=== PATIENT | female | born 1935 | race Caucasian/White ===

== ENCOUNTER 2018-08-14 05:32 | Inpatient (IN) ==
[2018-08-14] MEDS ORDERED: ceFAZolin 1,000 MG in SYRINGE 1 EACH IV ONE (06:00)
[2018-08-14] MEDS ORDERED: VANCOMYCIN INJ 1,000 MG in SODIUM CHLORIDE 0.9% 250 ML IV ONE (06:00)
[2018-08-14] MEDS ORDERED: BUPIVACAINE 0.5% 50 ML VIAL ONE (06:21)
[2018-08-14] MEDS ORDERED: BUPIVACAINE SPINAL 0.75% 2 ML AMP SPINAL ONE (06:21)
[2018-08-14] MEDS ORDERED: TRANEXAMIC ACID 1,000 MG/10 ML VIAL ONE (06:22)
[2018-08-14 06:36] LABS: Apearance,Urine CLEAR (Clear); Bacteria,Urine Occasional /HPF (Few); Bilirubin,Urine Negative (Negative); Blood, Urine Negative (Negative); Glucose,Urine (UA) Negative (Negative); Ketones,Urine Negative (Negative); Mucus,Urine Occasional /LPF (Occasional); Nitrite,Urine Negative (Negative); Protein,Urine Negative; RBC,Urine <1 /HPF (0-4); Squamous Epithelial Cell,Urine Occasional /HPF (0-10); Urine Color Straw (Yellow); Urine Specific Gravity 1.005 (1.001-1.035); Urine Urobilinogen < 2.0 EU/DL (0.2-1.0); WBC,Urine 1 /HPF (0-6)
[2018-08-14 06:39] LABS: INR 0.9; PT Patient Result 9.6 SECS; Partial Thromboplastin Time 26.2 SECS (0-40)
[2018-08-14] MEDS: LACTATED RINGERS 1,000 ML IV SCH ×3 (06:45→20:24)
[2018-08-14] MEDS ORDERED: VANCOMYCIN 1,000 MG VIAL ONE (06:55)
[2018-08-14] MEDS ORDERED: ceFAZolin 1,000 MG VIAL ONE (06:55)
[2018-08-14] MEDS ORDERED: BACITRACIN OINT 0.9 GM PACK TOP ONE (08:12)
[2018-08-14] MEDS ORDERED: ALBUTEROL 2.5 MG/3 ML NEB RESP TX PRN (08:52)
[2018-08-14] MEDS ORDERED: MORPHINE 4 MG/1 ML VIAL IV PRN ×2 (08:55)
[2018-08-14] MEDS ORDERED: MAGNESIUM HYDROXIDE SUSP 30 ML UDCUP PO PRN (08:55)
[2018-08-14] MEDS ORDERED: LEVOMILNACIPRAN 40 MG PO SCH (09:00)
[2018-08-14 09:28] LABS: Apearance,Urine CLEAR (Clear); Bilirubin,Urine Negative (Negative); Blood, Urine Negative (Negative); Glucose,Urine (UA) Negative (Negative); Ketones,Urine Negative (Negative); Nitrite,Urine Negative (Negative); Protein,Urine Negative; RBC,Urine <1 /HPF (0-4); Urine Color Straw (Yellow); Urine Specific Gravity 1.006 (1.001-1.035); Urine Urobilinogen < 2.0 EU/DL (0.2-1.0); WBC,Urine <1 /HPF (0-6)
[2018-08-14] MEDS ORDERED: fentaNYL 100 MCG/2 ML VIAL ONE (09:34)
[2018-08-14] MEDS ORDERED: SEVOFLURANE 1 UNIT/15 MINUTE INH ONE (09:36)
[2018-08-14] MEDS ORDERED: ePHEDrine 50 MG/ML AMP ONE (09:36)
[2018-08-14] MEDS ORDERED: PHENYLEPHRINE 10 MG/1 ML VIAL IV ONE (09:36)
[2018-08-14] MEDS ORDERED: NALOXONE 0.4 MG/ML VIAL ONE (09:36)
[2018-08-14] MEDS ORDERED: PROPOFOL 200 MG/20 ML VIAL IV ONE (09:36)
[2018-08-14] MEDS ORDERED: SODIUM CHLORIDE 0.9% 100 ML IV ONE (09:37)
[2018-08-14] MEDS ORDERED: NEOSTIGMINE 10 MG/10 ML VIAL ONE (09:37)
[2018-08-14] MEDS ORDERED: ROCURONIUM 100 MG/10 ML VIAL IV ONE (09:37)
[2018-08-14] MEDS ORDERED: GLYCOPYRROLATE 0.4 MG/2 ML VIAL ONE (09:37)
[2018-08-14] MEDS: LOSARTAN 50 MG TABLET PO SCH ×2 (11:16→20:26)
[2018-08-14] MEDS: DOCUSATE SODIUM 100 MG CAPSULE PO SCH ×2 (11:16→20:25)
[2018-08-14] MEDS: GABAPENTIN 300 MG CAPSULE PO SCH ×2 (11:16→20:26)
[2018-08-14] MEDS: FERROUS SULFATE 325 MG TABLET PO SCH ×2 (11:16→20:25)
[2018-08-14] MEDS: PANTOPRAZOLE 40 MG TABLET PO SCH (11:25)
[2018-08-14] MEDS: CALCIUM (CITRATE)/VITAMIN D 200 MG-125 UNIT TABLET PO SCH (11:25)
[2018-08-14] MEDS: MULTIVITAMIN (CENTRUM) TABLET PO SCH (11:25)
[2018-08-14] MEDS: LEVOTHYROXINE 75 MCG TABLET PO SCH (11:25)
[2018-08-14] MEDS: POTASSIUM CHLORIDE 20 MEQ TABLET PO SCH (11:25)
[2018-08-14] MEDS: MEMANTINE 10 MG TABLET PO SCH ×2 (11:26→20:26)
[2018-08-14] MEDS: KETOROLAC 15 MG/1 ML VIAL IV SCH ×3 (11:26→22:22)
[2018-08-14] MEDS: POLYETHYLENE GLYCOL POWDER 17 GM PACK PO SCH (11:26)
[2018-08-14] MEDS: MAGNESIUM CHLORIDE 64 MG TABLET PO SCH ×2 (11:29→20:25)
[2018-08-14] MEDS: ACETAMINOPHEN 500 MG TABLET PO SCH ×2 (13:16→18:39)
[2018-08-14] MEDS: ceFAZolin 1,000 MG in SYRINGE 1 EACH IV SCH (16:26)
[2018-08-14] MEDS: AMITRIPTYLINE 50 MG TABLET PO SCH (20:25)
[2018-08-14] MEDS: FONDAPARINUX 2.5 MG/0.5 ML SYRINGE SUBCUT SCH (20:27)
[2018-08-14] MEDS ORDERED: PREDNISONE 2.5 MG PO SCH (21:00)
[2018-08-15] MEDS: ACETAMINOPHEN 500 MG TABLET PO SCH ×2 (00:35→06:08)
[2018-08-15] MEDS: ceFAZolin 1,000 MG in SYRINGE 1 EACH IV SCH (00:36)
[2018-08-15] MEDS: KETOROLAC 15 MG/1 ML VIAL IV SCH (04:33)
[2018-08-15 05:24] LABS: Basophils % 0.4 % (0.0-0.8); Eosinophils # 0.3 10*3/uL (0.0-0.87); Eosinophils % 3.4 % (0.00-10.9); Hematocrit 31.3 VOL% (35.7-47.0); Hemoglobin 9.6 GM/DL (12.0-16.0); Immature Granulocytes % 0.4 %; Immature Granulocytes Absolute 0.03 #; Lymphocytes # 0.8 10*3/uL (1.4-4.0); Lymphocytes % 10.7 % (21.3-54.2); Mean Corpuscular HGB Conc 30.7 GM/DL (32-36); Mean Corpuscular Volume 94.8 FL (87-102); Mean Platelet Volume 10.1 FL (9.6-12.0); Monocytes % 6.3 % (1.7-12.7); Neutrophils % 78.8 % (38.7-73.9); Platelet Count 146 T/CUMM (130-400); Red Cell Distribution Width 14.1 % (9.3-17.3); White Blood Count 7.7 T/CUMM (4-12)
[2018-08-15 05:47] LABS: Calcium 8.6 MG/DL (8.5-10.1); Osmolality,Calculated 289.6 MOS/KG (273-304)
[2018-08-15] MEDS: LACTATED RINGERS 1,000 ML IV SCH ×2 (06:09→07:21)
[2018-08-15] MEDS: LEVOTHYROXINE 75 MCG TABLET PO SCH (07:26)
[2018-08-15] MEDS: DOCUSATE SODIUM 100 MG CAPSULE PO SCH ×2 (09:33→20:37)
[2018-08-15] MEDS: MAGNESIUM CHLORIDE 64 MG TABLET PO SCH ×2 (09:34→20:39)
[2018-08-15] MEDS: POTASSIUM CHLORIDE 20 MEQ TABLET PO SCH (09:34)
[2018-08-15] MEDS: GABAPENTIN 300 MG CAPSULE PO SCH ×3 (09:34→20:49)
[2018-08-15] MEDS: MEMANTINE 10 MG TABLET PO SCH ×2 (09:35→20:38)
[2018-08-15] MEDS: FERROUS SULFATE 325 MG TABLET PO SCH ×2 (09:35→20:38)
[2018-08-15] MEDS: PANTOPRAZOLE 40 MG TABLET PO SCH (09:35)
[2018-08-15] MEDS: CALCIUM (CITRATE)/VITAMIN D 200 MG-125 UNIT TABLET PO SCH (09:36)
[2018-08-15] MEDS: LOSARTAN 50 MG TABLET PO SCH ×2 (09:36→20:38)
[2018-08-15] MEDS: hydrALAZINE 25 MG TABLET PO SCH ×3 (09:36→20:39)
[2018-08-15] MEDS: amLODIPine 5 MG TABLET PO SCH (09:36)
[2018-08-15] MEDS: MULTIVITAMIN (CENTRUM) TABLET PO SCH (09:36)
[2018-08-15] MEDS: POLYETHYLENE GLYCOL POWDER 17 GM PACK PO SCH (09:37)
[2018-08-15] MEDS: AMITRIPTYLINE 50 MG TABLET PO SCH (20:39)
[2018-08-15] MEDS: FONDAPARINUX 2.5 MG/0.5 ML SYRINGE SUBCUT SCH (20:39)
[2018-08-16 05:05] LABS: Basophils % 0.3 % (0.0-0.8); Eosinophils # 0.5 10*3/uL (0.0-0.87); Hematocrit 31.1 VOL% (35.7-47.0); Hemoglobin 9.8 GM/DL (12.0-16.0); Immature Granulocytes % 0.5 %; Immature Granulocytes Absolute 0.06 #; Lymphocytes # 0.8 10*3/uL (1.4-4.0); Lymphocytes % 7.2 % (21.3-54.2); Mean Corpuscular HGB Conc 31.5 GM/DL (32-36); Mean Corpuscular Volume 93.4 FL (87-102); Mean Platelet Volume 10.1 FL (9.6-12.0); Monocytes % 6.6 % (1.7-12.7); Neutrophils % 81.4 % (38.7-73.9); Platelet Count 144 T/CUMM (130-400); Red Blood Count 3.33 MC/CUMM (3.8-5.5); Red Cell Distribution Width 14.1 % (9.3-17.3); White Blood Count 11.5 T/CUMM (4-12)
[2018-08-16] MEDS: LEVOTHYROXINE 75 MCG TABLET PO SCH (07:36)
[2018-08-16] MEDS: CALCIUM (CITRATE)/VITAMIN D 200 MG-125 UNIT TABLET PO SCH (10:14)
[2018-08-16] MEDS: LOSARTAN 50 MG TABLET PO SCH ×2 (10:15→20:36)
[2018-08-16] MEDS: GABAPENTIN 300 MG CAPSULE PO SCH ×3 (10:15→20:36)
[2018-08-16] MEDS: MEMANTINE 10 MG TABLET PO SCH ×2 (10:16→20:36)
[2018-08-16] MEDS: POLYETHYLENE GLYCOL POWDER 17 GM PACK PO SCH (10:17)
[2018-08-16] MEDS: amLODIPine 5 MG TABLET PO SCH (10:17)
[2018-08-16] MEDS: MAGNESIUM CHLORIDE 64 MG TABLET PO SCH ×2 (10:18→20:35)
[2018-08-16] MEDS: DOCUSATE SODIUM 100 MG CAPSULE PO SCH ×2 (10:18→20:36)
[2018-08-16] MEDS: MULTIVITAMIN (CENTRUM) TABLET PO SCH (10:19)
[2018-08-16] MEDS: FERROUS SULFATE 325 MG TABLET PO SCH ×2 (10:19→20:35)
[2018-08-16] MEDS: hydrALAZINE 25 MG TABLET PO SCH ×3 (10:20→20:35)
[2018-08-16] MEDS: PANTOPRAZOLE 40 MG TABLET PO SCH (10:20)
[2018-08-16] MEDS: POTASSIUM CHLORIDE 20 MEQ TABLET PO SCH (10:21)
[2018-08-16] MEDS: ONDANSETRON 4 MG/2 ML VIAL IV PRN ×2 (12:09→16:26)
[2018-08-16] MEDS: AMITRIPTYLINE 50 MG TABLET PO SCH (20:35)
[2018-08-16] MEDS: FONDAPARINUX 2.5 MG/0.5 ML SYRINGE SUBCUT SCH (20:36)
[2018-08-17 06:04] LABS: Basophils % 0.4 % (0.0-0.8); Eosinophils # 0.6 10*3/uL (0.0-0.87); Eosinophils % 7.5 % (0.00-10.9); Hematocrit 30.3 VOL% (35.7-47.0); Hemoglobin 9.4 GM/DL (12.0-16.0); Immature Granulocytes % 0.5 %; Immature Granulocytes Absolute 0.04 #; Lymphocytes % 12.8 % (21.3-54.2); Mean Platelet Volume 10.2 FL (9.6-12.0); Monocytes % 6.3 % (1.7-12.7); Neutrophils % 72.5 % (38.7-73.9); Platelet Count 159 T/CUMM (130-400); Red Blood Count 3.19 MC/CUMM (3.8-5.5); Red Cell Distribution Width 14.1 % (9.3-17.3); White Blood Count 7.9 T/CUMM (4-12)
[2018-08-17] MEDS: LEVOTHYROXINE 75 MCG TABLET PO SCH (07:49)
[2018-08-17] MEDS: GABAPENTIN 300 MG CAPSULE PO SCH ×2 (08:21→12:06)
[2018-08-17] MEDS: amLODIPine 5 MG TABLET PO SCH (08:22)
[2018-08-17] MEDS: hydrALAZINE 25 MG TABLET PO SCH (08:22)
[2018-08-17] MEDS: PANTOPRAZOLE 40 MG TABLET PO SCH (08:22)
[2018-08-17] MEDS: POLYETHYLENE GLYCOL POWDER 17 GM PACK PO SCH (08:22)
[2018-08-17] MEDS: MEMANTINE 10 MG TABLET PO SCH (08:22)
[2018-08-17] MEDS: LOSARTAN 50 MG TABLET PO SCH (08:22)
[2018-08-17] MEDS: POTASSIUM CHLORIDE 20 MEQ TABLET PO SCH (08:22)
[2018-08-17] MEDS: DOCUSATE SODIUM 100 MG CAPSULE PO SCH (08:22)
[2018-08-17] MEDS: MULTIVITAMIN (CENTRUM) TABLET PO SCH (08:22)
[2018-08-17] MEDS: FERROUS SULFATE 325 MG TABLET PO SCH (08:22)
[2018-08-17] MEDS: MAGNESIUM CHLORIDE 64 MG TABLET PO SCH (08:22)
[2018-08-17] MEDS: CALCIUM (CITRATE)/VITAMIN D 200 MG-125 UNIT TABLET PO SCH (08:22)
[2018-08-17] MEDS: ONDANSETRON 4 MG/2 ML VIAL IV PRN (09:23)
[2018-08-17 12:10] VITALS: BP 153/62
== END 2018-08-17 13:10 | disposition swing bed (61) | DRG 470 ==
LOC: N.SDSINP 05:32 → N.3E 10:08
PROVIDERS: ADMIT Orthopaedic Surgery; ATTEND Orthopaedic Surgery

== ENCOUNTER 2020-07-09 14:15 | Inpatient (IN) ==
[2020-07-09] MEDS ORDERED: ASPIRIN 325 MG TABLET PO STA (15:05)
[2020-07-09 16:25] LABS: Basophils % 0.4 % (0.0-0.8); Eosinophils # 0.1 10*3/uL (0.0-0.87); Eosinophils % 1.1 % (0.00-10.9); Hematocrit 35.8 VOL% (35.7-47.0); Hemoglobin 11.3 GM/DL (12.0-16.0); Immature Granulocytes % 0.9 %; Immature Granulocytes Absolute 0.04 #; Lymphocytes # 0.9 10*3/uL (1.4-4.0); Lymphocytes % 18.7 % (21.3-54.2); Mean Corpuscular HGB Conc 31.6 GM/DL (32-36); Mean Platelet Volume 9.4 FL (9.6-12.0); Monocytes % 7.4 % (1.7-12.7); Neutrophils % 71.5 % (38.7-73.9); Platelet Count 237 T/CUMM (130-400); Red Blood Count 3.81 MC/CUMM (3.8-5.5); White Blood Count 4.6 T/CUMM (4-12)
[2020-07-09 16:46] LABS: Albumin 3.1 G/DL (3.4-5.0); Bilirubin,Total 1.3 MG/DL (0.2-1.0); Calcium 9.9 MG/DL (8.5-10.1); Free T4 (Free Thyroxine) 1.27 NG/DL (0.76-1.46); Potassium 4.4 MMOL/L (3.5-5.1); Total Protein 6.4 G/DL (6.4-8.2)
[2020-07-09] MEDS ORDERED: FUROSEMIDE 20 MG/2 ML VIAL IV STA (17:49)
[2020-07-09] MEDS ORDERED: ENOXAPARIN 100 MG/ML SYRINGE SUBCUT STA (17:49)
[2020-07-09] MEDS ORDERED: NICOTINE 21 MG/24 HR PATCH TRANSDERM PRN (18:08)
[2020-07-09] MEDS ORDERED: ACETAMINOPHEN 325 MG TABLET PO PRN (18:08)
[2020-07-09] MEDS ORDERED: MORPHINE 4 MG/1 ML VIAL IV PRN (18:08)
[2020-07-09] MEDS ORDERED: GLUCAGON 1 MG VIAL IM PRN ×2 (18:08)
[2020-07-09] MEDS ORDERED: guaiFENesin/DM ER 600-30 MG TABLET PO PRN (18:08)
[2020-07-09] MEDS ORDERED: diphenhydrAMINE CAP 25 MG CAPSULE PO PRN (18:08)
[2020-07-09] MEDS ORDERED: ONDANSETRON 4 MG/2 ML VIAL IV PRN (18:08)
[2020-07-09] MEDS ORDERED: ZALEPLON 5 MG CAPSULE PO PRN (18:08)
[2020-07-09] MEDS ORDERED: DEXTROSE 50% 25 GM/50 ML VIAL IV PRN ×2 (18:08)
[2020-07-09] MEDS ORDERED: hydrALAZINE 20 MG/1 ML VIAL IV PRN (18:08)
[2020-07-09] MEDS ORDERED: FUROSEMIDE 40 MG/4 ML VIAL ONE (18:56)
[2020-07-09] MEDS: AMITRIPTYLINE 25 MG TABLET PO SCH (22:17)
[2020-07-09] MEDS: LOSARTAN 50 MG TABLET PO SCH (22:17)
[2020-07-09] MEDS: MEMANTINE 10 MG TABLET PO SCH (22:18)
[2020-07-09] MEDS: GABAPENTIN 300 MG CAPSULE PO SCH (22:18)
[2020-07-09] MEDS: ALPRAZolam 0.25 MG TABLET PO SCH (22:18)
[2020-07-09] MEDS: INSULIN REGULAR 100 UNIT/ML SUBCUT SCH (22:18)
[2020-07-10 05:24] LABS: Basophils % 0.6 % (0.0-0.8); Eosinophils # 0.2 10*3/uL (0.0-0.87); Eosinophils % 4.6 % (0.00-10.9); Hematocrit 34.5 VOL% (35.7-47.0); Hemoglobin 10.9 GM/DL (12.0-16.0); Immature Granulocytes % 0.6 %; Immature Granulocytes Absolute 0.03 #; Lymphocytes # 1.5 10*3/uL (1.4-4.0); Lymphocytes % 30.5 % (21.3-54.2); Mean Corpuscular HGB Conc 31.6 GM/DL (32-36); Mean Corpuscular Volume 92.2 FL (87-102); Monocytes % 7.4 % (1.7-12.7); Neutrophils % 56.3 % (38.7-73.9); Platelet Count 211 T/CUMM (130-400); Red Blood Count 3.74 MC/CUMM (3.8-5.5); Red Cell Distribution Width 14.2 % (9.3-17.3); White Blood Count 4.8 T/CUMM (4-12)
[2020-07-10] MEDS ORDERED: ENOXAPARIN 60 MG/0.6 ML SYRINGE SUBCUT SCH (06:00)
[2020-07-10 06:15] LABS: Calcium 9.6 MG/DL (8.5-10.1); Osmolality,Calculated 274.8 MOS/KG (273-304); Risk Ratio 2.53
[2020-07-10] MEDS: INSULIN REGULAR 100 UNIT/ML SUBCUT SCH ×4 (08:46→21:49)
[2020-07-10] MEDS: ALPRAZolam 0.25 MG TABLET PO SCH ×2 (08:52→21:47)
[2020-07-10] MEDS: amLODIPine 10 MG TABLET PO SCH (08:52)
[2020-07-10] MEDS: LOSARTAN 50 MG TABLET PO SCH ×2 (08:53→21:47)
[2020-07-10] MEDS: FERROUS SULFATE 325 MG TABLET PO SCH ×2 (08:53→16:43)
[2020-07-10] MEDS: MEMANTINE 10 MG TABLET PO SCH ×2 (08:53→21:46)
[2020-07-10] MEDS: PANTOPRAZOLE 40 MG TABLET PO SCH (08:53)
[2020-07-10] MEDS: FUROSEMIDE 40 MG/4 ML VIAL IV SCH ×2 (08:53→16:42)
[2020-07-10] MEDS ORDERED: DEXTROSE 50% 25 GM/50 ML VIAL IV PRN (14:42)
[2020-07-10] MEDS: RIVAROXABAN 15 MG TABLET PO SCH (16:43)
[2020-07-10] MEDS: GABAPENTIN 300 MG CAPSULE PO SCH (21:46)
[2020-07-10] MEDS: AMITRIPTYLINE 25 MG TABLET PO SCH (21:50)
[2020-07-11 05:25] LABS: Basophils % 0.7 % (0.0-0.8); Eosinophils # 0.2 10*3/uL (0.0-0.87); Eosinophils % 5.3 % (0.00-10.9); Hemoglobin 10.9 GM/DL (12.0-16.0); Immature Granulocytes % 1.9 %; Immature Granulocytes Absolute 0.08 #; Lymphocytes # 1.1 10*3/uL (1.4-4.0); Lymphocytes % 26.3 % (21.3-54.2); Mean Corpuscular HGB Conc 31.1 GM/DL (32-36); Mean Corpuscular Volume 92.8 FL (87-102); Mean Platelet Volume 9.7 FL (9.6-12.0); Monocytes % 12.7 % (1.7-12.7); Neutrophils % 53.1 % (38.7-73.9); Platelet Count 224 T/CUMM (130-400); Red Blood Count 3.77 MC/CUMM (3.8-5.5); Red Cell Distribution Width 13.7 % (9.3-17.3); White Blood Count 4.2 T/CUMM (4-12)
[2020-07-11 05:46] LABS: Osmolality,Calculated 279.4 MOS/KG (273-304); Potassium 3.2 MMOL/L (3.5-5.1)
[2020-07-11] MEDS: INSULIN REGULAR 100 UNIT/ML SUBCUT SCH ×4 (08:52→20:35)
[2020-07-11] MEDS: amLODIPine 10 MG TABLET PO SCH (08:54)
[2020-07-11] MEDS: ALPRAZolam 0.25 MG TABLET PO SCH ×2 (08:54→20:35)
[2020-07-11] MEDS: MULTIVITAMIN (CENTRUM) TABLET PO SCH (08:54)
[2020-07-11] MEDS: MEMANTINE 10 MG TABLET PO SCH ×2 (08:54→20:34)
[2020-07-11] MEDS: FERROUS SULFATE 325 MG TABLET PO SCH ×2 (08:54→16:42)
[2020-07-11] MEDS: RIVAROXABAN 15 MG TABLET PO SCH ×2 (08:54→16:39)
[2020-07-11] MEDS: PANTOPRAZOLE 40 MG TABLET PO SCH (08:55)
[2020-07-11] MEDS: LOSARTAN 50 MG TABLET PO SCH ×2 (08:55→20:35)
[2020-07-11] MEDS: FUROSEMIDE 20 MG/2 ML VIAL IV SCH ×2 (11:53→16:43)
[2020-07-11] MEDS ORDERED: POTASSIUM CHLORIDE 20 MEQ TABLET PO ONE (12:10)
[2020-07-11 14:04] LABS: Troponin I 0.043 NG/ML (0.00-0.045)
[2020-07-11] MEDS: AMITRIPTYLINE 25 MG TABLET PO SCH (20:34)
[2020-07-11] MEDS: GABAPENTIN 300 MG CAPSULE PO SCH (20:34)
[2020-07-11] MEDS: carvediloL 12.5 MG TABLET PO SCH (20:35)
[2020-07-12 06:13] LABS: Basophils % 0.8 % (0.0-0.8); Calcium 8.7 MG/DL (8.5-10.1); Eosinophils # 0.2 10*3/uL (0.0-0.87); Hematocrit 35.7 VOL% (35.7-47.0); Hemoglobin 11.1 GM/DL (12.0-16.0); Immature Granulocytes Absolute 0.04 #; Lymphocytes # 1.1 10*3/uL (1.4-4.0); Lymphocytes % 28.4 % (21.3-54.2); Mean Corpuscular HGB Conc 31.1 GM/DL (32-36); Mean Corpuscular Volume 94.7 FL (87-102); Mean Platelet Volume 9.8 FL (9.6-12.0); Monocytes % 9.6 % (1.7-12.7); Neutrophils % 54.2 % (38.7-73.9); Osmolality,Calculated 275.7 MOS/KG (273-304); Platelet Count 265 T/CUMM (130-400); Potassium 3.7 MMOL/L (3.5-5.1); Red Blood Count 3.77 MC/CUMM (3.8-5.5); Red Cell Distribution Width 13.8 % (9.3-17.3); White Blood Count 3.8 T/CUMM (4-12)
[2020-07-12 06:53] LABS: Platelet Estimate Adequate
[2020-07-12] MEDS: INSULIN REGULAR 100 UNIT/ML SUBCUT SCH ×4 (08:36→22:05)
[2020-07-12] MEDS ORDERED: ENOXAPARIN 60 MG/0.6 ML SYRINGE SUBCUT SCH (09:00)
[2020-07-12] MEDS: ALPRAZolam 0.25 MG TABLET PO SCH ×2 (09:23→22:05)
[2020-07-12] MEDS: LOSARTAN 50 MG TABLET PO SCH ×2 (09:23→22:05)
[2020-07-12] MEDS: PANTOPRAZOLE 40 MG TABLET PO SCH (09:23)
[2020-07-12] MEDS: FERROUS SULFATE 325 MG TABLET PO SCH ×2 (09:23→16:35)
[2020-07-12] MEDS: RIVAROXABAN 15 MG TABLET PO SCH ×2 (09:23→16:35)
[2020-07-12] MEDS: MEMANTINE 10 MG TABLET PO SCH ×2 (09:23→22:05)
[2020-07-12] MEDS: carvediloL 12.5 MG TABLET PO SCH ×2 (09:23→22:04)
[2020-07-12] MEDS: MULTIVITAMIN (CENTRUM) TABLET PO SCH (09:23)
[2020-07-12] MEDS: FUROSEMIDE 20 MG/2 ML VIAL IV SCH ×2 (09:24→16:35)
[2020-07-12] MEDS: GABAPENTIN 300 MG CAPSULE PO SCH (22:05)
[2020-07-12] MEDS: AMITRIPTYLINE 25 MG TABLET PO SCH (22:05)
[2020-07-13 05:10] LABS: Basophils % 0.9 % (0.0-0.8); Eosinophils # 0.2 10*3/uL (0.0-0.87); Eosinophils % 5.1 % (0.00-10.9); Hematocrit 32.7 VOL% (35.7-47.0); Hemoglobin 10.2 GM/DL (12.0-16.0); Immature Granulocytes % 0.7 %; Immature Granulocytes Absolute 0.03 #; Lymphocytes # 1.5 10*3/uL (1.4-4.0); Lymphocytes % 33.6 % (21.3-54.2); Mean Corpuscular HGB Conc 31.2 GM/DL (32-36); Mean Platelet Volume 10.1 FL (9.6-12.0); Monocytes % 8.1 % (1.7-12.7); Neutrophils % 51.6 % (38.7-73.9); Platelet Count 231 T/CUMM (130-400); Red Blood Count 3.48 MC/CUMM (3.8-5.5); Red Cell Distribution Width 13.6 % (9.3-17.3); White Blood Count 4.3 T/CUMM (4-12)
[2020-07-13 05:25] LABS: Calcium 8.9 MG/DL (8.5-10.1); Osmolality,Calculated 279.4 MOS/KG (273-304)
[2020-07-13 05:31] LABS: Hypochromasia 1+; Microcytosis 1+; Platelet Estimate Adequate
[2020-07-13] MEDS ORDERED: POTASSIUM CHLORIDE 20 MEQ TABLET PO ONE (07:06)
[2020-07-13] MEDS: INSULIN REGULAR 100 UNIT/ML SUBCUT SCH ×2 (08:34→13:46)
[2020-07-13] MEDS: MULTIVITAMIN (CENTRUM) TABLET PO SCH (10:07)
[2020-07-13] MEDS: carvediloL 12.5 MG TABLET PO SCH (10:07)
[2020-07-13] MEDS: MEMANTINE 10 MG TABLET PO SCH (10:08)
[2020-07-13] MEDS: RIVAROXABAN 15 MG TABLET PO SCH (10:08)
[2020-07-13] MEDS: PANTOPRAZOLE 40 MG TABLET PO SCH (10:08)
[2020-07-13] MEDS: FERROUS SULFATE 325 MG TABLET PO SCH (10:08)
[2020-07-13] MEDS: LOSARTAN 50 MG TABLET PO SCH (10:08)
[2020-07-13] MEDS: ALPRAZolam 0.25 MG TABLET PO SCH (10:09)
[2020-07-13] MEDS: FUROSEMIDE 20 MG/2 ML VIAL IV SCH (10:10)
[2020-07-13 13:04] VITALS: BP 153/72
== END 2020-07-13 16:13 | disposition home or self-care (01) | DRG 291 ==
LOC: N.ED 14:15 → SUATTDRO 17:53 → N.EDINP 17:53 → N.TELEN 20:47
PROVIDERS: ADMIT Internal Medicine; ATTEND Emergency Medicine

== ENCOUNTER 2020-07-20 19:13 | Inpatient (IN) ==
[2020-07-20] MEDS ORDERED: PANTOPRAZOLE 40 MG VIAL IV STA (20:48)
[2020-07-20] MEDS ORDERED: SODIUM CHLORIDE 0.9% 500 ML IV STA (20:48)
[2020-07-20] MEDS ORDERED: ONDANSETRON 4 MG/2 ML VIAL IV STA (20:48)
[2020-07-20 21:05] LABS: Basophils % 0.6 % (0.0-0.8); Eosinophils # 0.2 10*3/uL (0.0-0.87); Hematocrit 28.8 VOL% (35.7-47.0); Hemoglobin 8.9 GM/DL (12.0-16.0); Immature Granulocytes % 0.9 %; Immature Granulocytes Absolute 0.05 #; Lymphocytes # 1.9 10*3/uL (1.4-4.0); Lymphocytes % 35.1 % (21.3-54.2); Mean Corpuscular HGB Conc 30.9 GM/DL (32-36); Mean Corpuscular Volume 95.7 FL (87-102); Monocytes % 10.3 % (1.7-12.7); Neutrophils % 50.1 % (38.7-73.9); Platelet Count 192 T/CUMM (130-400); Red Blood Count 3.01 MC/CUMM (3.8-5.5); Red Cell Distribution Width 14.6 % (9.3-17.3); White Blood Count 5.3 T/CUMM (4-12)
[2020-07-20 21:56] LABS: Alanine Aminotransferase 12 U/L (13-56); Albumin 3.2 G/DL (3.4-5.0); Alkaline Phosphatase 73 U/L (45-117); Amylase 22 U/L (25-115); Aspartate Amino Transferase 13 U/L (0-37); Bilirubin,Total < 0.39 MG/DL (0.2-1.0); Blood Urea Nitrogen 28 MG/DL (7-18); Calcium 8.6 MG/DL (8.5-10.1); Carbon Dioxide 26 MMOL/L (21-32); Estimated Glom Filtration Rate 45 ML/MIN; Glucose 114 MG/DL (74-106); Osmolality,Calculated 283.5 MOS/KG (273-304); Potassium 4.1 MMOL/L (3.5-5.1); Sodium 139 MMOL/L (136-145); Total Protein 5.6 G/DL (6.4-8.2)
[2020-07-20 22:05] LABS: Bilirubin,Urine Negative (Negative); Blood, Urine Large mg/dL (Negative); Glucose,Urine (UA) Negative (Negative); Hyaline Casts,Urine 5 /LPF (0-3); Ketones,Urine Negative (Negative); Mucus,Urine Occasional /LPF (Occasional); Nitrite,Urine Negative (Negative); Protein,Urine 30 MG/DL; RBC,Urine 3 /HPF (0-4); Squamous Epithelial Cell,Urine Occasional /HPF (0-10); Urine Appearance Slightly Hazy (Clear); Urine Color Amber (Yellow); Urine Urobilinogen < 2.0 EU/DL (0.2-1.0)
[2020-07-20] MEDS ORDERED: cefTRIAXone 1,000 MG in SODIUM CHLORIDE 0.9% 100 ML IV STA (22:43)
[2020-07-20] MEDS ORDERED: cefTRIAXone 1,000 MG VIAL ONE (22:44)
[2020-07-20] MEDS ORDERED: GLUCAGON 1 MG VIAL IM PRN (23:11)
[2020-07-20] MEDS ORDERED: diphenhydrAMINE CAP 25 MG CAPSULE PO PRN (23:11)
[2020-07-20] MEDS ORDERED: DEXTROSE 50% 25 GM/50 ML VIAL IV PRN (23:11)
[2020-07-20] MEDS ORDERED: MORPHINE 4 MG/1 ML VIAL IV PRN (23:11)
[2020-07-20] MEDS ORDERED: ONDANSETRON 4 MG/2 ML VIAL IV PRN (23:11)
[2020-07-20] MEDS ORDERED: NICOTINE 21 MG/24 HR PATCH TRANSDERM PRN (23:11)
[2020-07-20 23:17] LABS: INR 1.1
[2020-07-21 05:31] LABS: Basophils % 0.2 % (0.0-0.8); Eosinophils # 0.2 10*3/uL (0.0-0.87); Hematocrit 24.6 VOL% (35.7-47.0); Hemoglobin 7.6 GM/DL (12.0-16.0); Immature Granulocytes % 0.9 %; Immature Granulocytes Absolute 0.04 #; Lymphocytes # 1.4 10*3/uL (1.4-4.0); Lymphocytes % 32.9 % (21.3-54.2); Mean Corpuscular HGB Conc 30.9 GM/DL (32-36); Mean Platelet Volume 10.4 FL (9.6-12.0); Platelet Count 150 T/CUMM (130-400); Red Blood Count 2.59 MC/CUMM (3.8-5.5); Red Cell Distribution Width 14.5 % (9.3-17.3); White Blood Count 4.2 T/CUMM (4-12)
[2020-07-21 06:04] LABS: Hypochromasia 1+; Microcytosis 1+; Platelet Estimate Adequate
[2020-07-21] MEDS: GABAPENTIN 300 MG CAPSULE PO SCH ×3 (11:05→21:29)
[2020-07-21] MEDS: POTASSIUM CHLORIDE 20 MEQ TABLET PO SCH (11:06)
[2020-07-21] MEDS: CALCIUM (CARBONATE)/VITAMIN D 500 MG-200 UNIT TABLET PO SCH (11:06)
[2020-07-21] MEDS: PANTOPRAZOLE 40 MG TABLET PO SCH (11:06)
[2020-07-21] MEDS: MULTIVITAMIN (CENTRUM) TABLET PO SCH (11:06)
[2020-07-21] MEDS: POLYETHYLENE GLYCOL POWDER 17 GM PACK PO SCH (11:06)
[2020-07-21] MEDS: MEMANTINE 10 MG TABLET PO SCH ×2 (11:06→21:30)
[2020-07-21] MEDS: LEVOTHYROXINE 75 MCG TABLET PO SCH (11:06)
[2020-07-21] MEDS: carvediloL 12.5 MG TABLET PO SCH ×2 (12:13→21:30)
[2020-07-21] MEDS: hydrALAZINE 25 MG TABLET PO SCH ×3 (12:13→21:06)
[2020-07-21] MEDS: LOSARTAN 50 MG TABLET PO SCH ×2 (12:13→21:30)
[2020-07-21] MEDS: predniSONE 1 MG TABLET PO SCH (12:13)
[2020-07-21] MEDS: FUROSEMIDE 20 MG TABLET PO SCH ×2 (12:13→17:16)
[2020-07-21 18:04] LABS: Hematocrit 28.3 VOL% (35.7-47.0); Hemoglobin 8.6 GM/DL (12.0-16.0)
[2020-07-21] MEDS ORDERED: cefTRIAXone 1,000 MG in SODIUM CHLORIDE 0.9% 100 ML IV SCH (21:00)
[2020-07-21] MEDS: ARIPiprazole 2 MG TABLET PO SCH (21:06)
[2020-07-22 06:15] LABS: Basophils % 0.8 % (0.0-0.8); Eosinophils # 0.3 10*3/uL (0.0-0.87); Eosinophils % 6.8 % (0.00-10.9); Hematocrit 25.2 VOL% (35.7-47.0); Hemoglobin 7.7 GM/DL (12.0-16.0); Immature Granulocytes % 0.5 %; Immature Granulocytes Absolute 0.02 #; Lymphocytes # 1.1 10*3/uL (1.4-4.0); Lymphocytes % 27.5 % (21.3-54.2); Mean Corpuscular HGB Conc 30.6 GM/DL (32-36); Mean Corpuscular Volume 96.2 FL (87-102); Mean Platelet Volume 10.4 FL (9.6-12.0); Monocytes % 8.8 % (1.7-12.7); Neutrophils % 55.6 % (38.7-73.9); Platelet Count 144 T/CUMM (130-400); Red Blood Count 2.62 MC/CUMM (3.8-5.5); Red Cell Distribution Width 14.6 % (9.3-17.3); White Blood Count 3.9 T/CUMM (4-12)
[2020-07-22] MEDS: LEVOTHYROXINE 75 MCG TABLET PO SCH (06:34)
[2020-07-22 06:35] LABS: Calcium 8.5 MG/DL (8.5-10.1); Potassium 3.8 MMOL/L (3.5-5.1)
[2020-07-22] MEDS: MEMANTINE 10 MG TABLET PO SCH ×2 (09:01→20:17)
[2020-07-22] MEDS: carvediloL 12.5 MG TABLET PO SCH ×2 (09:01→20:17)
[2020-07-22] MEDS: predniSONE 1 MG TABLET PO SCH (09:02)
[2020-07-22] MEDS: FUROSEMIDE 20 MG TABLET PO SCH ×2 (09:02→16:10)
[2020-07-22] MEDS: CALCIUM (CARBONATE)/VITAMIN D 500 MG-200 UNIT TABLET PO SCH (09:02)
[2020-07-22] MEDS: MULTIVITAMIN (CENTRUM) TABLET PO SCH (09:03)
[2020-07-22] MEDS: hydrALAZINE 25 MG TABLET PO SCH ×3 (09:03→20:16)
[2020-07-22] MEDS: GABAPENTIN 300 MG CAPSULE PO SCH ×3 (09:03→20:17)
[2020-07-22] MEDS: PANTOPRAZOLE 40 MG TABLET PO SCH (09:03)
[2020-07-22] MEDS: LOSARTAN 50 MG TABLET PO SCH ×2 (09:03→20:17)
[2020-07-22] MEDS: POTASSIUM CHLORIDE 20 MEQ TABLET PO SCH (09:03)
[2020-07-22] MEDS: POLYETHYLENE GLYCOL POWDER 17 GM PACK PO SCH (09:03)
[2020-07-22] MEDS: LEVOFLOXACIN 250 MG TABLET PO SCH (13:43)
[2020-07-22] MEDS: busPIRone 5 MG TABLET PO SCH ×2 (16:10→20:17)
[2020-07-22] MEDS ORDERED: POLYETHYLENE GLYCOL POWDER 255 GM BOTTLE PO ONE (18:00)
[2020-07-22] MEDS: ARIPiprazole 2 MG TABLET PO SCH (20:16)
[2020-07-23 05:15] LABS: Basophils % 0.6 % (0.0-0.8); Eosinophils # 0.4 10*3/uL (0.0-0.87); Eosinophils % 8.2 % (0.00-10.9); Hematocrit 29.6 VOL% (35.7-47.0); Hemoglobin 9.1 GM/DL (12.0-16.0); Immature Granulocytes % 0.6 %; Immature Granulocytes Absolute 0.03 #; Lymphocytes # 1.6 10*3/uL (1.4-4.0); Lymphocytes % 34.6 % (21.3-54.2); Mean Corpuscular HGB Conc 30.7 GM/DL (32-36); Mean Corpuscular Volume 95.8 FL (87-102); Mean Platelet Volume 10.2 FL (9.6-12.0); Monocytes % 10.5 % (1.7-12.7); Neutrophils % 45.5 % (38.7-73.9); Platelet Count 180 T/CUMM (130-400); Red Blood Count 3.09 MC/CUMM (3.8-5.5); Red Cell Distribution Width 14.5 % (9.3-17.3); White Blood Count 4.7 T/CUMM (4-12)
[2020-07-23 05:32] LABS: PT Patient Result 11.7 SECS (10.5-12.0)
[2020-07-23] MEDS: LEVOTHYROXINE 75 MCG TABLET PO SCH (05:35)
[2020-07-23 05:37] LABS: Eosinophils 8 % (0-10); Hypochromasia 1+; Lymphocytes 36 % (20-55); Microcytosis 1+; Platelet Estimate Adequate; Segmented Neutrophils 49 % (50-85); Total Cells Counted 100
[2020-07-23 05:42] LABS: Osmolality,Calculated 282.1 MOS/KG (273-304); Potassium 3.7 MMOL/L (3.5-5.1)
[2020-07-23] MEDS ORDERED: MAGNESIUM CITRATE 300 ML BOTTLE PO ONE (05:49)
[2020-07-23] MEDS: MULTIVITAMIN (CENTRUM) TABLET PO SCH (09:22)
[2020-07-23] MEDS: POLYETHYLENE GLYCOL POWDER 17 GM PACK PO SCH (09:22)
[2020-07-23] MEDS: CALCIUM (CARBONATE)/VITAMIN D 500 MG-200 UNIT TABLET PO SCH (09:24)
[2020-07-23] MEDS: busPIRone 5 MG TABLET PO SCH ×3 (09:26→20:21)
[2020-07-23] MEDS: LACTATED RINGERS 1,000 ML IV SCH ×2 (09:26→13:44)
[2020-07-23] MEDS: FUROSEMIDE 20 MG TABLET PO SCH ×2 (09:27→16:06)
[2020-07-23] MEDS: GABAPENTIN 300 MG CAPSULE PO SCH ×3 (09:27→20:22)
[2020-07-23] MEDS: hydrALAZINE 25 MG TABLET PO SCH ×3 (09:28→20:21)
[2020-07-23] MEDS: predniSONE 1 MG TABLET PO SCH (09:28)
[2020-07-23] MEDS: PANTOPRAZOLE 40 MG TABLET PO SCH (09:28)
[2020-07-23] MEDS: LEVOFLOXACIN 250 MG TABLET PO SCH (09:29)
[2020-07-23] MEDS: MEMANTINE 10 MG TABLET PO SCH ×2 (09:29→20:22)
[2020-07-23] MEDS: carvediloL 12.5 MG TABLET PO SCH ×2 (09:29→20:22)
[2020-07-23] MEDS: LOSARTAN 50 MG TABLET PO SCH ×2 (09:30→20:22)
[2020-07-23] MEDS: POTASSIUM CHLORIDE 20 MEQ TABLET PO SCH (09:30)
[2020-07-23] MEDS ORDERED: LIDOCAINE 2% 5 ML VIAL ONE (13:28)
[2020-07-23] MEDS ORDERED: propofoL 200 MG/20 ML VIAL IV ONE (13:28)
[2020-07-23] MEDS: RIVAROXABAN 15 MG TABLET PO SCH (16:39)
[2020-07-23] MEDS ORDERED: AMITRIPTYLINE 25 MG TABLET PO PRN (20:05)
[2020-07-23] MEDS: ARIPiprazole 2 MG TABLET PO SCH (20:21)
[2020-07-24] MEDS: LEVOTHYROXINE 75 MCG TABLET PO SCH (05:46)
[2020-07-24 06:33] LABS: Basophils % 0.7 % (0.0-0.8); Eosinophils # 0.4 10*3/uL (0.0-0.87); Eosinophils % 8.7 % (0.00-10.9); Hematocrit 26.9 VOL% (35.7-47.0); Hemoglobin 8.3 GM/DL (12.0-16.0); Immature Granulocytes % 0.5 %; Immature Granulocytes Absolute 0.02 #; Lymphocytes # 1.3 10*3/uL (1.4-4.0); Mean Corpuscular HGB Conc 30.9 GM/DL (32-36); Mean Corpuscular Volume 95.7 FL (87-102); Mean Platelet Volume 9.9 FL (9.6-12.0); Monocytes % 10.1 % (1.7-12.7); Platelet Count 156 T/CUMM (130-400); Red Blood Count 2.81 MC/CUMM (3.8-5.5); Red Cell Distribution Width 14.6 % (9.3-17.3); White Blood Count 4.4 T/CUMM (4-12)
[2020-07-24 07:06] LABS: Calcium 8.5 MG/DL (8.5-10.1); Osmolality,Calculated 280.1 MOS/KG (273-304); Potassium 3.2 MMOL/L (3.5-5.1)
[2020-07-24] MEDS: MEMANTINE 10 MG TABLET PO SCH (08:21)
[2020-07-24] MEDS: MULTIVITAMIN (CENTRUM) TABLET PO SCH (08:21)
[2020-07-24] MEDS: PANTOPRAZOLE 40 MG TABLET PO SCH (08:21)
[2020-07-24] MEDS: POTASSIUM CHLORIDE 20 MEQ TABLET PO SCH (08:21)
[2020-07-24] MEDS: LEVOFLOXACIN 250 MG TABLET PO SCH (08:21)
[2020-07-24] MEDS: RIVAROXABAN 15 MG TABLET PO SCH (08:22)
[2020-07-24] MEDS: GABAPENTIN 300 MG CAPSULE PO SCH ×2 (08:22→13:40)
[2020-07-24] MEDS: FUROSEMIDE 20 MG TABLET PO SCH (08:22)
[2020-07-24] MEDS: busPIRone 5 MG TABLET PO SCH (08:22)
[2020-07-24] MEDS: carvediloL 12.5 MG TABLET PO SCH (08:23)
[2020-07-24] MEDS: CALCIUM (CARBONATE)/VITAMIN D 500 MG-200 UNIT TABLET PO SCH (08:23)
[2020-07-24] MEDS: LOSARTAN 50 MG TABLET PO SCH (08:23)
[2020-07-24] MEDS: predniSONE 1 MG TABLET PO SCH (08:23)
[2020-07-24] MEDS: POLYETHYLENE GLYCOL POWDER 17 GM PACK PO SCH (08:24)
[2020-07-24] MEDS: hydrALAZINE 25 MG TABLET PO SCH (11:27)
[2020-07-24] MEDS: LACTATED RINGERS 1,000 ML IV SCH (12:02)
[2020-07-24 12:21] LABS: Basophils # 0.1 10*3/uL (0.0-0.2); Basophils % 1.1 % (0.0-0.8); Eosinophils # 0.4 10*3/uL (0.0-0.87); Hematocrit 31.1 VOL% (35.7-47.0); Hemoglobin 9.5 GM/DL (12.0-16.0); Immature Granulocytes % 0.7 %; Immature Granulocytes Absolute 0.03 #; Lymphocytes % 21.3 % (21.3-54.2); Mean Corpuscular HGB Conc 30.5 GM/DL (32-36); Mean Corpuscular Volume 96.9 FL (87-102); Mean Platelet Volume 9.7 FL (9.6-12.0); Monocytes % 8.6 % (1.7-12.7); Neutrophils % 59.3 % (38.7-73.9); Platelet Count 176 T/CUMM (130-400); Red Blood Count 3.21 MC/CUMM (3.8-5.5); Red Cell Distribution Width 14.7 % (9.3-17.3); White Blood Count 4.6 T/CUMM (4-12)
[2020-07-24 12:39] LABS: % Iron Saturation 13.2 % (18-50); Iron 38 UG/DL (50-170); Iron Binding Capacity 288 UG/DL (250-450)
[2020-07-24 12:40] VITALS: BP 141/51
[2020-07-24 13:04] LABS: Folate > 24.00 NG/ML (5.38-24.0); Vitamin B12 1590 PG/ML (211-911)
[2020-07-24 13:17] LABS: Sedimentation Rate-Westergren 48 MM/HR (0-30)
[2020-07-27 08:46] LABS: Hemoglobin A1 (Alkaline) 97.5 % (96.5-98.5); Hemoglobin A2 (Alkaline) 2.5 % (1.5-3.5)
== END 2020-07-24 15:45 | disposition home health service (06) | DRG 378 ==
LOC: N.ED 19:13 → N.EDINP 19:13 → N.4E 07-21 00:45
PROVIDERS: ADMIT Internal Medicine; ATTEND Internal Medicine

== ENCOUNTER 2020-07-27 12:06 | Inpatient (IN) ==
[2020-07-27] MEDS ORDERED: SODIUM CHLORIDE 0.9% 1,000 ML IV STA (13:13)
[2020-07-27 13:39] LABS: Basophils % 0.2 % (0.0-0.8); Eosinophils # 0.1 10*3/uL (0.0-0.87); Eosinophils % 1.9 % (0.00-10.9); Hematocrit 27.1 VOL% (35.7-47.0); Hemoglobin 8.4 GM/DL (12.0-16.0); Immature Granulocytes % 0.4 %; Immature Granulocytes Absolute 0.02 #; Lymphocytes # 0.9 10*3/uL (1.4-4.0); Lymphocytes % 16.6 % (21.3-54.2); Mean Corpuscular Volume 95.4 FL (87-102); Mean Platelet Volume 9.4 FL (9.6-12.0); Monocytes % 7.3 % (1.7-12.7); Neutrophils % 73.6 % (38.7-73.9); Platelet Count 164 T/CUMM (130-400); Red Blood Count 2.84 MC/CUMM (3.8-5.5); Red Cell Distribution Width 14.6 % (9.3-17.3); White Blood Count 5.4 T/CUMM (4-12)
[2020-07-27 13:41] LABS: Bilirubin,Urine Negative (Negative); Blood, Urine Negative (Negative); Glucose,Urine (UA) Negative (Negative); Ketones,Urine Negative (Negative); Mucus,Urine Occasional /LPF (Occasional); Nitrite,Urine Negative (Negative); Protein,Urine Negative; RBC,Urine 1 /HPF (0-4); Urine Appearance CLEAR (Clear); Urine Color Yellow (Yellow); Urine Specific Gravity 1.008 (1.001-1.035); Urine Urobilinogen < 2.0 EU/DL (0.2-1.0)
[2020-07-27 13:55] LABS: PT Patient Result 11.5 SECS (10.5-12.0); Partial Thromboplastin Time 27.3 SECS (23.9-33.8)
[2020-07-27 14:09] LABS: Alanine Aminotransferase 13 U/L (13-56); Albumin 3.3 G/DL (3.4-5.0); Alkaline Phosphatase 83 U/L (45-117); Aspartate Amino Transferase 11 U/L (0-37); Bilirubin,Total < 0.39 MG/DL (0.2-1.0); Blood Urea Nitrogen 17 MG/DL (7-18); Calcium 8.9 MG/DL (8.5-10.1); Carbon Dioxide 30 MMOL/L (21-32); Estimated Glom Filtration Rate 34 ML/MIN; Glucose 117 MG/DL (74-106); Osmolality,Calculated 279.5 MOS/KG (273-304); Potassium 4.4 MMOL/L (3.5-5.1); Sodium 139 MMOL/L (136-145)
[2020-07-27] MEDS ORDERED: ALBUTEROL/IPRATROPIUM 3 ML NEB RESP TX PRN (16:09)
[2020-07-27] MEDS ORDERED: ONDANSETRON 4 MG/2 ML VIAL IV PRN (16:09)
[2020-07-27] MEDS ORDERED: GLUCAGON 1 MG VIAL IM PRN (16:09)
[2020-07-27] MEDS ORDERED: ACETAMINOPHEN 325 MG TABLET PO PRN (16:09)
[2020-07-27] MEDS ORDERED: DEXTROSE 50% 25 GM/50 ML VIAL IV PRN (16:09)
[2020-07-27] MEDS ORDERED: traMADol 50 MG TABLET PO PRN (16:14)
[2020-07-27] MEDS: LEVOFLOXACIN INJ 750 MG/150 ML PREMIX IV SCH (17:00)
[2020-07-27] MEDS: GABAPENTIN 300 MG CAPSULE PO SCH ×2 (17:53→20:25)
[2020-07-27] MEDS: RIVAROXABAN 15 MG TABLET PO SCH (17:53)
[2020-07-27] MEDS: carvediloL 12.5 MG TABLET PO SCH (20:21)
[2020-07-27] MEDS: LOSARTAN 50 MG TABLET PO SCH (20:21)
[2020-07-27] MEDS: busPIRone 5 MG TABLET PO SCH (20:21)
[2020-07-27] MEDS: hydrALAZINE 25 MG TABLET PO SCH (20:21)
[2020-07-27] MEDS: FUROSEMIDE 20 MG TABLET PO SCH (20:23)
[2020-07-27] MEDS: ARIPiprazole 2 MG TABLET PO SCH (20:25)
[2020-07-27] MEDS: AMITRIPTYLINE 75 MG TABLET PO SCH (20:25)
[2020-07-27] MEDS: MEMANTINE 10 MG TABLET PO SCH (20:25)
[2020-07-27] MEDS: FERROUS SULFATE 325 MG TABLET PO SCH (20:25)
[2020-07-27] MEDS: CALCIUM (CARBONATE)/VITAMIN D 500 MG-200 UNIT TABLET PO SCH (20:26)
[2020-07-28 05:16] LABS: Basophils % 0.3 % (0.0-0.8); Eosinophils # 0.1 10*3/uL (0.0-0.87); Eosinophils % 4.7 % (0.00-10.9); Hematocrit 22.1 VOL% (35.7-47.0); Immature Granulocytes % 0.3 %; Immature Granulocytes Absolute 0.01 #; Lymphocytes # 1.1 10*3/uL (1.4-4.0); Lymphocytes % 35.9 % (21.3-54.2); Mean Corpuscular HGB Conc 31.7 GM/DL (32-36); Mean Platelet Volume 9.6 FL (9.6-12.0); Monocytes % 11.3 % (1.7-12.7); Neutrophils % 47.5 % (38.7-73.9); Platelet Count 127 T/CUMM (130-400); Red Blood Count 2.35 MC/CUMM (3.8-5.5); Red Cell Distribution Width 14.6 % (9.3-17.3)
[2020-07-28 05:39] LABS: Albumin 2.5 G/DL (3.4-5.0); Bilirubin,Total 0.5 MG/DL (0.2-1.0); Calcium 8.7 MG/DL (8.5-10.1); Osmolality,Calculated 278.4 MOS/KG (273-304); Potassium 4.2 MMOL/L (3.5-5.1); Total Protein 5.3 G/DL (6.4-8.2)
[2020-07-28 06:10] LABS: Eosinophils 5 % (0-10); Hypochromasia 1+; Lymphocytes 27 % (20-55); Platelet Estimate Normal; Segmented Neutrophils 57 % (50-85); Total Cells Counted 100
[2020-07-28] MEDS: LEVOTHYROXINE 75 MCG TABLET PO SCH (06:30)
[2020-07-28] MEDS: MULTIVITAMIN (CENTRUM) TABLET PO SCH (08:56)
[2020-07-28] MEDS: POLYETHYLENE GLYCOL POWDER 17 GM PACK PO SCH (08:56)
[2020-07-28] MEDS: FUROSEMIDE 20 MG TABLET PO SCH ×2 (08:57→21:07)
[2020-07-28] MEDS: CALCIUM (CARBONATE)/VITAMIN D 500 MG-200 UNIT TABLET PO SCH ×2 (08:57→21:07)
[2020-07-28] MEDS: GABAPENTIN 300 MG CAPSULE PO SCH ×3 (08:57→21:07)
[2020-07-28] MEDS: MEMANTINE 10 MG TABLET PO SCH ×2 (08:57→21:08)
[2020-07-28] MEDS: POTASSIUM CHLORIDE 20 MEQ TABLET PO SCH (08:57)
[2020-07-28] MEDS: LOSARTAN 50 MG TABLET PO SCH ×2 (08:58→21:13)
[2020-07-28] MEDS: carvediloL 12.5 MG TABLET PO SCH ×2 (08:58→21:07)
[2020-07-28] MEDS: FERROUS SULFATE 325 MG TABLET PO SCH ×2 (08:58→21:08)
[2020-07-28] MEDS: PANTOPRAZOLE 40 MG TABLET PO SCH (08:58)
[2020-07-28] MEDS: AMITRIPTYLINE 25 MG TABLET PO SCH (08:58)
[2020-07-28] MEDS: busPIRone 5 MG TABLET PO SCH (08:59)
[2020-07-28] MEDS: predniSONE 1 MG TABLET PO SCH (08:59)
[2020-07-28] MEDS: hydrALAZINE 25 MG TABLET PO SCH ×3 (09:00→21:08)
[2020-07-28] MEDS: RIVAROXABAN 15 MG TABLET PO SCH (09:02)
[2020-07-28 09:29] LABS: Hematocrit 24.7 VOL% (35.7-47.0); Hemoglobin 7.6 GM/DL (12.0-16.0)
[2020-07-28] MEDS: AMITRIPTYLINE 75 MG TABLET PO SCH (21:07)
[2020-07-28] MEDS: ARIPiprazole 2 MG TABLET PO SCH (21:07)
[2020-07-29 05:22] LABS: Basophils % 0.2 % (0.0-0.8); Eosinophils % 0.9 % (0.00-10.9); Hemoglobin 8.1 GM/DL (12.0-16.0); Immature Granulocytes % 0.7 %; Immature Granulocytes Absolute 0.03 #; Lymphocytes # 1.4 10*3/uL (1.4-4.0); Lymphocytes % 31.7 % (21.3-54.2); Mean Corpuscular Volume 97.5 FL (87-102); Mean Platelet Volume 9.7 FL (9.6-12.0); Monocytes % 9.6 % (1.7-12.7); Neutrophils % 56.9 % (38.7-73.9); Platelet Count 163 T/CUMM (130-400); Red Blood Count 2.77 MC/CUMM (3.8-5.5); Red Cell Distribution Width 14.3 % (9.3-17.3); White Blood Count 4.4 T/CUMM (4-12)
[2020-07-29 05:31] LABS: Calcium 9.7 MG/DL (8.5-10.1); Osmolality,Calculated 280.4 MOS/KG (273-304); Potassium 4.4 MMOL/L (3.5-5.1)
[2020-07-29 05:48] LABS: Eosinophils 2 % (0-10); Hypochromasia 1+; Lymphocytes 29 % (20-55); Microcytosis 1+; Platelet Estimate Adequate; Segmented Neutrophils 60 % (50-85); Total Cells Counted 100
[2020-07-29] MEDS: LEVOTHYROXINE 75 MCG TABLET PO SCH (06:12)
[2020-07-29] MEDS: PANTOPRAZOLE 40 MG TABLET PO SCH (08:02)
[2020-07-29] MEDS: CALCIUM (CARBONATE)/VITAMIN D 500 MG-200 UNIT TABLET PO SCH ×2 (08:02→21:26)
[2020-07-29] MEDS: hydrALAZINE 25 MG TABLET PO SCH ×3 (08:02→21:25)
[2020-07-29] MEDS: LOSARTAN 50 MG TABLET PO SCH ×2 (08:02→21:25)
[2020-07-29] MEDS: POTASSIUM CHLORIDE 20 MEQ TABLET PO SCH (08:02)
[2020-07-29] MEDS: MULTIVITAMIN (CENTRUM) TABLET PO SCH (08:02)
[2020-07-29] MEDS: AMITRIPTYLINE 25 MG TABLET PO SCH (08:02)
[2020-07-29] MEDS: carvediloL 12.5 MG TABLET PO SCH ×2 (08:02→21:25)
[2020-07-29] MEDS: MEMANTINE 10 MG TABLET PO SCH ×2 (08:02→21:26)
[2020-07-29] MEDS: FERROUS SULFATE 325 MG TABLET PO SCH ×2 (08:02→21:25)
[2020-07-29] MEDS: GABAPENTIN 300 MG CAPSULE PO SCH ×3 (08:02→21:26)
[2020-07-29] MEDS: FUROSEMIDE 20 MG TABLET PO SCH ×2 (08:02→21:26)
[2020-07-29] MEDS: LEVOFLOXACIN INJ 750 MG/150 ML PREMIX IV SCH (08:03)
[2020-07-29] MEDS: POLYETHYLENE GLYCOL POWDER 17 GM PACK PO SCH (08:03)
[2020-07-29] MEDS: predniSONE 1 MG TABLET PO SCH (08:03)
[2020-07-29] MEDS: ARIPiprazole 2 MG TABLET PO SCH (21:25)
[2020-07-29] MEDS: AMITRIPTYLINE 75 MG TABLET PO SCH (21:25)
[2020-07-30 06:35] LABS: Basophils % 0.5 % (0.0-0.8); Eosinophils # 0.2 10*3/uL (0.0-0.87); Hematocrit 26.1 VOL% (35.7-47.0); Hemoglobin 7.8 GM/DL (12.0-16.0); Immature Granulocytes % 0.5 %; Immature Granulocytes Absolute 0.02 #; Lymphocytes # 1.1 10*3/uL (1.4-4.0); Lymphocytes % 29.4 % (21.3-54.2); Mean Corpuscular HGB Conc 29.9 GM/DL (32-36); Mean Corpuscular Volume 97.4 FL (87-102); Mean Platelet Volume 9.9 FL (9.6-12.0); Monocytes % 12.5 % (1.7-12.7); Neutrophils % 53.1 % (38.7-73.9); Platelet Count 144 T/CUMM (130-400); Red Blood Count 2.68 MC/CUMM (3.8-5.5); Red Cell Distribution Width 14.3 % (9.3-17.3); White Blood Count 3.8 T/CUMM (4-12)
[2020-07-30 06:47] LABS: Calcium 9.8 MG/DL (8.5-10.1); Osmolality,Calculated 278.4 MOS/KG (273-304); Potassium 3.9 MMOL/L (3.5-5.1)
[2020-07-30] MEDS: LEVOTHYROXINE 75 MCG TABLET PO SCH (06:51)
[2020-07-30 07:12] LABS: Eosinophils 2 % (0-10); Hypochromasia 1+; Lymphocytes 34 % (20-55); Microcytosis 1+; Platelet Estimate Adequate; Segmented Neutrophils 53 % (50-85); Total Cells Counted 100
[2020-07-30] MEDS: LOSARTAN 50 MG TABLET PO SCH ×2 (08:26→21:10)
[2020-07-30] MEDS: FERROUS SULFATE 325 MG TABLET PO SCH ×2 (08:26→21:12)
[2020-07-30] MEDS: CALCIUM (CARBONATE)/VITAMIN D 500 MG-200 UNIT TABLET PO SCH ×2 (08:26→21:11)
[2020-07-30] MEDS: GABAPENTIN 300 MG CAPSULE PO SCH ×3 (08:26→21:11)
[2020-07-30] MEDS: AMITRIPTYLINE 25 MG TABLET PO SCH (08:26)
[2020-07-30] MEDS: PANTOPRAZOLE 40 MG TABLET PO SCH (08:26)
[2020-07-30] MEDS: MEMANTINE 10 MG TABLET PO SCH ×2 (08:26→21:10)
[2020-07-30] MEDS: FUROSEMIDE 20 MG TABLET PO SCH (08:26)
[2020-07-30] MEDS: hydrALAZINE 25 MG TABLET PO SCH ×3 (08:26→21:09)
[2020-07-30] MEDS: POTASSIUM CHLORIDE 20 MEQ TABLET PO SCH (08:26)
[2020-07-30] MEDS: predniSONE 1 MG TABLET PO SCH (08:26)
[2020-07-30] MEDS: MULTIVITAMIN (CENTRUM) TABLET PO SCH (08:26)
[2020-07-30] MEDS: carvediloL 12.5 MG TABLET PO SCH ×2 (08:26→21:12)
[2020-07-30] MEDS: POLYETHYLENE GLYCOL POWDER 17 GM PACK PO SCH (08:27)
[2020-07-30] MEDS: DOCUSATE SODIUM 100 MG CAPSULE PO SCH ×2 (10:46→21:09)
[2020-07-30] MEDS: LEVOFLOXACIN 750 MG TABLET PO SCH (10:46)
[2020-07-30] MEDS ORDERED: MAGNESIUM HYDROXIDE SUSP 30 ML UDCUP PO ONE (11:00)
[2020-07-30 12:10] LABS: Hematocrit 26.2 VOL% (35.7-47.0); Hemoglobin 7.8 GM/DL (12.0-16.0)
[2020-07-30] MEDS: ARIPiprazole 2 MG TABLET PO SCH (21:09)
[2020-07-30] MEDS: AMITRIPTYLINE 75 MG TABLET PO SCH (21:10)
[2020-07-31] MEDS: LEVOTHYROXINE 75 MCG TABLET PO SCH (05:59)
[2020-07-31 06:02] LABS: Basophils % 0.3 % (0.0-0.8); Eosinophils # 0.2 10*3/uL (0.0-0.87); Eosinophils % 4.6 % (0.00-10.9); Hematocrit 24.4 VOL% (35.7-47.0); Hemoglobin 7.3 GM/DL (12.0-16.0); Immature Granulocytes % 1.4 %; Immature Granulocytes Absolute 0.05 #; Lymphocytes # 0.9 10*3/uL (1.4-4.0); Lymphocytes % 26.9 % (21.3-54.2); Mean Corpuscular HGB Conc 29.9 GM/DL (32-36); Mean Corpuscular Volume 96.8 FL (87-102); Mean Platelet Volume 9.7 FL (9.6-12.0); Monocytes % 11.5 % (1.7-12.7); Neutrophils % 55.3 % (38.7-73.9); Platelet Count 146 T/CUMM (130-400); Red Blood Count 2.52 MC/CUMM (3.8-5.5); Red Cell Distribution Width 14.2 % (9.3-17.3); White Blood Count 3.5 T/CUMM (4-12)
[2020-07-31 06:17] LABS: Calcium 9.3 MG/DL (8.5-10.1); Osmolality,Calculated 279.4 MOS/KG (273-304)
[2020-07-31 07:06] LABS: Platelet Estimate Adequate
[2020-07-31] MEDS ORDERED: SODIUM CHLORIDE 0.9% 1,000 ML IV PRN (08:32)
[2020-07-31] MEDS: AMITRIPTYLINE 25 MG TABLET PO SCH (09:21)
[2020-07-31] MEDS: PANTOPRAZOLE 40 MG TABLET PO SCH (09:21)
[2020-07-31] MEDS: CALCIUM (CARBONATE)/VITAMIN D 500 MG-200 UNIT TABLET PO SCH ×2 (09:21→21:23)
[2020-07-31] MEDS: hydrALAZINE 25 MG TABLET PO SCH ×3 (09:21→21:23)
[2020-07-31] MEDS: MULTIVITAMIN (CENTRUM) TABLET PO SCH (09:21)
[2020-07-31] MEDS: POLYETHYLENE GLYCOL POWDER 17 GM PACK PO SCH (09:21)
[2020-07-31] MEDS: POTASSIUM CHLORIDE 20 MEQ TABLET PO SCH (09:21)
[2020-07-31] MEDS: LOSARTAN 50 MG TABLET PO SCH ×2 (09:21→21:22)
[2020-07-31] MEDS: MEMANTINE 10 MG TABLET PO SCH ×2 (09:21→21:21)
[2020-07-31] MEDS: LEVOFLOXACIN 750 MG TABLET PO SCH (09:21)
[2020-07-31] MEDS: DOCUSATE SODIUM 100 MG CAPSULE PO SCH ×2 (09:21→21:23)
[2020-07-31] MEDS: FERROUS SULFATE 325 MG TABLET PO SCH ×2 (09:21→21:23)
[2020-07-31] MEDS: GABAPENTIN 300 MG CAPSULE PO SCH ×3 (09:21→21:30)
[2020-07-31] MEDS: carvediloL 12.5 MG TABLET PO SCH ×2 (09:21→21:22)
[2020-07-31] MEDS: predniSONE 1 MG TABLET PO SCH (09:22)
[2020-07-31] MEDS ORDERED: FUROSEMIDE 40 MG/4 ML VIAL IV ONE ×2 (09:30→11:14)
[2020-07-31] MEDS: FUROSEMIDE 20 MG TABLET PO SCH ×2 (10:57→16:39)
[2020-07-31 18:36] LABS: Hematocrit 31.4 VOL% (35.7-47.0)
[2020-07-31 18:41] LABS: Hemoglobin 9.6 GM/DL (12.0-16.0)
[2020-07-31] MEDS: ARIPiprazole 2 MG TABLET PO SCH (21:23)
[2020-07-31] MEDS: AMITRIPTYLINE 75 MG TABLET PO SCH (21:29)
[2020-08-01 06:06] LABS: Basophils % 0.5 % (0.0-0.8); Eosinophils # 0.2 10*3/uL (0.0-0.87); Eosinophils % 4.6 % (0.00-10.9); Hematocrit 29.9 VOL% (35.7-47.0); Hemoglobin 9.6 GM/DL (12.0-16.0); Immature Granulocytes % 0.8 %; Immature Granulocytes Absolute 0.03 #; Lymphocytes # 1.1 10*3/uL (1.4-4.0); Lymphocytes % 30.6 % (21.3-54.2); Mean Corpuscular HGB Conc 32.1 GM/DL (32-36); Mean Corpuscular Volume 93.4 FL (87-102); Mean Platelet Volume 10.6 FL (9.6-12.0); Monocytes % 12.1 % (1.7-12.7); Neutrophils % 51.4 % (38.7-73.9); Platelet Count 133 T/CUMM (130-400); Red Cell Distribution Width 13.9 % (9.3-17.3); White Blood Count 3.7 T/CUMM (4-12)
[2020-08-01] MEDS: LEVOTHYROXINE 75 MCG TABLET PO SCH (06:08)
[2020-08-01 06:14] LABS: Calcium 9.7 MG/DL (8.5-10.1); Osmolality,Calculated 278.4 MOS/KG (273-304); Potassium 3.5 MMOL/L (3.5-5.1)
[2020-08-01 07:18] LABS: Hypochromasia 1+; Microcytosis 1+; Platelet Estimate Adequate
[2020-08-01] MEDS: POLYETHYLENE GLYCOL POWDER 17 GM PACK PO SCH (09:56)
[2020-08-01] MEDS: carvediloL 12.5 MG TABLET PO SCH ×2 (09:56→20:46)
[2020-08-01] MEDS: predniSONE 1 MG TABLET PO SCH (09:56)
[2020-08-01] MEDS: hydrALAZINE 25 MG TABLET PO SCH ×3 (09:57→20:46)
[2020-08-01] MEDS: FUROSEMIDE 20 MG TABLET PO SCH ×2 (09:57→15:58)
[2020-08-01] MEDS: MULTIVITAMIN (CENTRUM) TABLET PO SCH (09:57)
[2020-08-01] MEDS: CALCIUM (CARBONATE)/VITAMIN D 500 MG-200 UNIT TABLET PO SCH ×2 (09:57→20:46)
[2020-08-01] MEDS: GABAPENTIN 300 MG CAPSULE PO SCH ×3 (09:57→20:46)
[2020-08-01] MEDS: DOCUSATE SODIUM 100 MG CAPSULE PO SCH ×2 (09:57→20:46)
[2020-08-01] MEDS: FERROUS SULFATE 325 MG TABLET PO SCH ×2 (09:57→20:46)
[2020-08-01] MEDS: LEVOFLOXACIN 750 MG TABLET PO SCH (09:57)
[2020-08-01] MEDS: MEMANTINE 10 MG TABLET PO SCH ×2 (09:57→20:46)
[2020-08-01] MEDS: AMITRIPTYLINE 25 MG TABLET PO SCH (09:57)
[2020-08-01] MEDS: POTASSIUM CHLORIDE 20 MEQ TABLET PO SCH (09:57)
[2020-08-01] MEDS: PANTOPRAZOLE 40 MG TABLET PO SCH (09:57)
[2020-08-01] MEDS: LOSARTAN 50 MG TABLET PO SCH ×2 (09:58→20:46)
[2020-08-01] MEDS: AMITRIPTYLINE 75 MG TABLET PO SCH (20:46)
[2020-08-01] MEDS: ARIPiprazole 2 MG TABLET PO SCH (20:46)
[2020-08-02 05:23] LABS: Basophils % 0.8 % (0.0-0.8); Eosinophils # 0.2 10*3/uL (0.0-0.87); Eosinophils % 4.3 % (0.00-10.9); Hematocrit 30.4 VOL% (35.7-47.0); Hemoglobin 9.6 GM/DL (12.0-16.0); Immature Granulocytes % 0.8 %; Immature Granulocytes Absolute 0.03 #; Lymphocytes # 1.2 10*3/uL (1.4-4.0); Mean Corpuscular HGB Conc 31.6 GM/DL (32-36); Mean Platelet Volume 9.8 FL (9.6-12.0); Monocytes % 12.3 % (1.7-12.7); Neutrophils % 48.8 % (38.7-73.9); Platelet Count 137 T/CUMM (130-400); Red Blood Count 3.27 MC/CUMM (3.8-5.5); Red Cell Distribution Width 13.8 % (9.3-17.3); White Blood Count 3.7 T/CUMM (4-12)
[2020-08-02] MEDS: LEVOTHYROXINE 75 MCG TABLET PO SCH (05:47)
[2020-08-02 05:53] LABS: Hypochromasia 1+; Microcytosis 1+; Ovalocytes Slight
[2020-08-02 05:54] LABS: Platelet Estimate Adequate
[2020-08-02] MEDS: LEVOFLOXACIN 750 MG TABLET PO SCH (10:50)
[2020-08-02] MEDS: POLYETHYLENE GLYCOL POWDER 17 GM PACK PO SCH (10:50)
[2020-08-02] MEDS: MULTIVITAMIN (CENTRUM) TABLET PO SCH (10:51)
[2020-08-02] MEDS: carvediloL 12.5 MG TABLET PO SCH (10:51)
[2020-08-02] MEDS: GABAPENTIN 300 MG CAPSULE PO SCH (10:51)
[2020-08-02] MEDS: AMITRIPTYLINE 25 MG TABLET PO SCH (10:51)
[2020-08-02] MEDS: PANTOPRAZOLE 40 MG TABLET PO SCH (10:51)
[2020-08-02] MEDS: CALCIUM (CARBONATE)/VITAMIN D 500 MG-200 UNIT TABLET PO SCH (10:51)
[2020-08-02] MEDS: POTASSIUM CHLORIDE 20 MEQ TABLET PO SCH (10:51)
[2020-08-02] MEDS: hydrALAZINE 25 MG TABLET PO SCH (10:51)
[2020-08-02] MEDS: DOCUSATE SODIUM 100 MG CAPSULE PO SCH (10:51)
[2020-08-02] MEDS: MEMANTINE 10 MG TABLET PO SCH (10:52)
[2020-08-02] MEDS: FERROUS SULFATE 325 MG TABLET PO SCH (10:52)
[2020-08-02] MEDS: FUROSEMIDE 20 MG TABLET PO SCH (10:52)
[2020-08-02] MEDS: predniSONE 1 MG TABLET PO SCH (10:52)
[2020-08-02] MEDS: LOSARTAN 50 MG TABLET PO SCH (10:52)
[2020-08-02 11:44] VITALS: BP 157/62
== END 2020-08-02 12:22 | disposition home health service (06) | DRG 193 ==
LOC: EDBD → EDUNIT# → N.ED 12:06 → SUATTDRO 16:09 → N.EDINP 16:09 → N.5E 17:12
PROVIDERS: ADMIT Internal Medicine; ATTEND Family Medicine

== ENCOUNTER 2020-08-13 10:51 | Inpatient (IN) ==
[2020-08-13] MEDS ORDERED: ONDANSETRON 4 MG/2 ML VIAL IV STA (11:27)
[2020-08-13] MEDS ORDERED: PANTOPRAZOLE 40 MG VIAL IV STA (11:27)
[2020-08-13] MEDS ORDERED: SODIUM CHLORIDE 0.9% 1,000 ML IV STA (11:27)
[2020-08-13 11:46] LABS: Basophils % 0.2 % (0.0-0.8); Eosinophils % 0.8 % (0.00-10.9); Hematocrit 32.3 VOL% (35.7-47.0); Hemoglobin 9.8 GM/DL (12.0-16.0); Immature Granulocytes % 2.5 %; Immature Granulocytes Absolute 0.13 #; Lymphocytes # 0.6 10*3/uL (1.4-4.0); Mean Corpuscular HGB Conc 30.3 GM/DL (32-36); Mean Corpuscular Volume 94.4 FL (87-102); Monocytes % 6.8 % (1.7-12.7); Neutrophils % 77.7 % (38.7-73.9); Platelet Count 208 T/CUMM (130-400); Red Blood Count 3.42 MC/CUMM (3.8-5.5); Red Cell Distribution Width 13.5 % (9.3-17.3); White Blood Count 5.3 T/CUMM (4-12)
[2020-08-13 11:57] LABS: INR 1.1; PT Patient Result 11.8 SECS (10.5-12.0); Partial Thromboplastin Time 30.2 SECS (23.9-33.8)
[2020-08-13 12:10] LABS: Albumin 3.1 G/DL (3.4-5.0); Bilirubin,Total 0.6 MG/DL (0.2-1.0); Calcium 9.2 MG/DL (8.5-10.1); Osmolality,Calculated 283.3 MOS/KG (273-304); Potassium 3.8 MMOL/L (3.5-5.1); Total Protein 6.2 G/DL (6.4-8.2)
[2020-08-13] MEDS ORDERED: ONDANSETRON 4 MG/2 ML VIAL IV PRN (14:45)
[2020-08-13] MEDS ORDERED: GLUCAGON 1 MG VIAL IM PRN (14:45)
[2020-08-13] MEDS ORDERED: ACETAMINOPHEN 325 MG TABLET PO PRN (14:45)
[2020-08-13] MEDS ORDERED: DEXTROSE 50% 25 GM/50 ML VIAL IV PRN (14:45)
[2020-08-13] MEDS ORDERED: BISACODYL 5 MG TABLET PO PRN (14:45)
[2020-08-13 14:58] LABS: Bilirubin,Urine Negative (Negative); Blood, Urine Negative (Negative); Glucose,Urine (UA) Negative (Negative); Hyaline Casts,Urine 3 /LPF (0-3); Ketones,Urine Negative (Negative); Nitrite,Urine Negative (Negative); Protein,Urine Negative; RBC,Urine 1 /HPF (0-4); Urine Appearance CLEAR (Clear); Urine Color Yellow (Yellow); Urine Specific Gravity 1.009 (1.001-1.035); Urine Urobilinogen < 2.0 EU/DL (0.2-1.0)
[2020-08-13] MEDS ORDERED: SODIUM CHLORIDE 0.9% 1,000 ML IV SCH (15:00)
[2020-08-13 17:07] LABS: Hemoglobin 9.4 GM/DL (12.0-16.0)
[2020-08-13] MEDS ORDERED: traMADol 50 MG TABLET PO PRN (21:11)
[2020-08-13] MEDS: MEMANTINE 10 MG TABLET PO SCH (21:35)
[2020-08-13] MEDS: GABAPENTIN 300 MG CAPSULE PO SCH (21:36)
[2020-08-13] MEDS: carvediloL 12.5 MG TABLET PO SCH (21:36)
[2020-08-13] MEDS: ARIPiprazole 2 MG TABLET PO SCH (21:36)
[2020-08-13 23:04] LABS: Hematocrit 28.9 VOL% (35.7-47.0); Hemoglobin 8.6 GM/DL (12.0-16.0)
[2020-08-14 06:24] LABS: Basophils % 0.4 % (0.0-0.8); Eosinophils # 0.1 10*3/uL (0.0-0.87); Eosinophils % 2.5 % (0.00-10.9); Hematocrit 32.4 VOL% (35.7-47.0); Hemoglobin 9.6 GM/DL (12.0-16.0); Immature Granulocytes % 1.7 %; Immature Granulocytes Absolute 0.09 #; Lymphocytes # 0.8 10*3/uL (1.4-4.0); Lymphocytes % 14.8 % (21.3-54.2); Mean Corpuscular HGB Conc 29.6 GM/DL (32-36); Mean Corpuscular Volume 97.6 FL (87-102); Mean Platelet Volume 10.2 FL (9.6-12.0); Monocytes % 9.5 % (1.7-12.7); Neutrophils % 71.1 % (38.7-73.9); Platelet Count 234 T/CUMM (130-400); Red Blood Count 3.32 MC/CUMM (3.8-5.5); Red Cell Distribution Width 13.6 % (9.3-17.3); White Blood Count 5.3 T/CUMM (4-12)
[2020-08-14 06:45] LABS: Alanine Aminotransferase 22 U/L (13-56); Albumin 2.7 G/DL (3.4-5.0); Alkaline Phosphatase 90 U/L (45-117); Aspartate Amino Transferase 19 U/L (0-37); Bilirubin,Total < 0.39 MG/DL (0.2-1.0); Blood Urea Nitrogen 20 MG/DL (7-18); Calcium 8.3 MG/DL (8.5-10.1); Carbon Dioxide 29 MMOL/L (21-32); Estimated Glom Filtration Rate 50 ML/MIN; Glucose 128 MG/DL (74-106); Osmolality,Calculated 285.3 MOS/KG (273-304); Potassium 3.9 MMOL/L (3.5-5.1); Sodium 141 MMOL/L (136-145); Total Protein 6.2 G/DL (6.4-8.2)
[2020-08-14] MEDS ORDERED: ALPRAZolam 0.25 MG TABLET PO PRN (08:56)
[2020-08-14] MEDS ORDERED: busPIRone 5 MG TABLET PO SCH (09:00)
[2020-08-14] MEDS: predniSONE 1 MG TABLET PO SCH (09:14)
[2020-08-14] MEDS: FUROSEMIDE 40 MG/4 ML VIAL IV SCH ×2 (09:14→16:39)
[2020-08-14] MEDS: PANTOPRAZOLE 40 MG TABLET PO SCH (09:14)
[2020-08-14] MEDS: CALCIUM (CARBONATE)/VITAMIN D 500 MG-200 UNIT TABLET PO SCH ×2 (09:14→21:03)
[2020-08-14] MEDS: MEMANTINE 10 MG TABLET PO SCH ×2 (09:15→21:04)
[2020-08-14] MEDS: POTASSIUM CHLORIDE 20 MEQ TABLET PO SCH (09:15)
[2020-08-14] MEDS: AMITRIPTYLINE 25 MG TABLET PO SCH ×2 (09:15→21:04)
[2020-08-14] MEDS: POLYETHYLENE GLYCOL POWDER 17 GM PACK PO SCH (09:15)
[2020-08-14] MEDS: carvediloL 12.5 MG TABLET PO SCH ×2 (09:15→21:04)
[2020-08-14] MEDS: LEVOTHYROXINE 75 MCG TABLET PO SCH (09:15)
[2020-08-14] MEDS: hydrALAZINE 25 MG TABLET PO SCH ×3 (09:19→21:04)
[2020-08-14] MEDS: FERROUS SULFATE 325 MG TABLET PO SCH ×2 (09:19→21:04)
[2020-08-14] MEDS: GABAPENTIN 300 MG CAPSULE PO SCH ×3 (09:19→21:04)
[2020-08-14] MEDS: ALBUTEROL/IPRATROPIUM 3 ML NEB RESP TX SCH ×2 (13:12→19:46)
[2020-08-14 14:43] LABS: Hemoglobin 8.5 GM/DL (12.0-16.0)
[2020-08-14] MEDS: ARIPiprazole 2 MG TABLET PO SCH (21:03)
[2020-08-14] MEDS: LOSARTAN 50 MG TABLET PO SCH (21:04)
[2020-08-15] MEDS: ALBUTEROL/IPRATROPIUM 3 ML NEB RESP TX SCH ×4 (02:00→19:27)
[2020-08-15 05:23] LABS: Basophils % 0.4 % (0.0-0.8); Eosinophils # 0.2 10*3/uL (0.0-0.87); Eosinophils % 3.4 % (0.00-10.9); Hematocrit 29.7 VOL% (35.7-47.0); Hemoglobin 8.8 GM/DL (12.0-16.0); Immature Granulocytes % 2.3 %; Immature Granulocytes Absolute 0.11 #; Mean Corpuscular HGB Conc 29.6 GM/DL (32-36); Mean Corpuscular Volume 96.4 FL (87-102); Mean Platelet Volume 10.5 FL (9.6-12.0); Monocytes % 10.9 % (1.7-12.7); Platelet Count 176 T/CUMM (130-400); Red Blood Count 3.08 MC/CUMM (3.8-5.5); Red Cell Distribution Width 13.8 % (9.3-17.3); White Blood Count 4.8 T/CUMM (4-12)
[2020-08-15 05:42] LABS: Calcium 8.9 MG/DL (8.5-10.1); Osmolality,Calculated 276.8 MOS/KG (273-304); Potassium 4.3 MMOL/L (3.5-5.1)
[2020-08-15] MEDS: POLYETHYLENE GLYCOL POWDER 17 GM PACK PO SCH (09:44)
[2020-08-15] MEDS: POTASSIUM CHLORIDE 20 MEQ TABLET PO SCH (09:45)
[2020-08-15] MEDS: CALCIUM (CARBONATE)/VITAMIN D 500 MG-200 UNIT TABLET PO SCH ×2 (09:45→21:16)
[2020-08-15] MEDS: LEVOTHYROXINE 75 MCG TABLET PO SCH (09:45)
[2020-08-15] MEDS: hydrALAZINE 25 MG TABLET PO SCH ×3 (09:45→21:16)
[2020-08-15] MEDS: FERROUS SULFATE 325 MG TABLET PO SCH ×2 (09:45→21:16)
[2020-08-15] MEDS: predniSONE 1 MG TABLET PO SCH (09:45)
[2020-08-15] MEDS: MEMANTINE 10 MG TABLET PO SCH ×2 (09:45→21:16)
[2020-08-15] MEDS: GABAPENTIN 300 MG CAPSULE PO SCH ×3 (09:45→21:16)
[2020-08-15] MEDS: PANTOPRAZOLE 40 MG TABLET PO SCH (09:45)
[2020-08-15] MEDS: carvediloL 12.5 MG TABLET PO SCH ×2 (09:45→21:15)
[2020-08-15] MEDS: LOSARTAN 50 MG TABLET PO SCH ×2 (09:45→21:15)
[2020-08-15] MEDS: FUROSEMIDE 40 MG/4 ML VIAL IV SCH ×2 (09:46→16:29)
[2020-08-15] MEDS: AMITRIPTYLINE 25 MG TABLET PO SCH ×2 (09:46→21:15)
[2020-08-15] MEDS: cefTRIAXone 1,000 MG in SODIUM CHLORIDE 0.9% 100 ML IV SCH (13:09)
[2020-08-15] MEDS: AZITHROMYCIN INJ 500 MG in SODIUM CHLORIDE 0.9% 250 ML IV SCH (13:51)
[2020-08-15] MEDS: ARIPiprazole 2 MG TABLET PO SCH (21:16)
[2020-08-16] MEDS: ALBUTEROL/IPRATROPIUM 3 ML NEB RESP TX SCH ×4 (00:12→19:26)
[2020-08-16 05:20] LABS: Basophils % 0.2 % (0.0-0.8); Eosinophils # 0.2 10*3/uL (0.0-0.87); Eosinophils % 3.2 % (0.00-10.9); Hemoglobin 9.4 GM/DL (12.0-16.0); Immature Granulocytes % 1.9 %; Immature Granulocytes Absolute 0.09 #; Lymphocytes # 1.2 10*3/uL (1.4-4.0); Lymphocytes % 25.7 % (21.3-54.2); Mean Corpuscular HGB Conc 30.3 GM/DL (32-36); Mean Corpuscular Volume 95.4 FL (87-102); Mean Platelet Volume 10.5 FL (9.6-12.0); Monocytes % 11.7 % (1.7-12.7); Neutrophils % 57.3 % (38.7-73.9); Platelet Count 207 T/CUMM (130-400); Red Blood Count 3.25 MC/CUMM (3.8-5.5); Red Cell Distribution Width 13.6 % (9.3-17.3); White Blood Count 4.7 T/CUMM (4-12)
[2020-08-16 05:34] LABS: Osmolality,Calculated 285.1 MOS/KG (273-304); Potassium 4.3 MMOL/L (3.5-5.1)
[2020-08-16] MEDS: predniSONE 1 MG TABLET PO SCH (09:01)
[2020-08-16] MEDS: GABAPENTIN 300 MG CAPSULE PO SCH ×3 (09:01→20:42)
[2020-08-16] MEDS: POTASSIUM CHLORIDE 20 MEQ TABLET PO SCH (09:01)
[2020-08-16] MEDS: FERROUS SULFATE 325 MG TABLET PO SCH ×2 (09:01→20:43)
[2020-08-16] MEDS: LEVOTHYROXINE 75 MCG TABLET PO SCH (09:01)
[2020-08-16] MEDS: FUROSEMIDE 40 MG/4 ML VIAL IV SCH ×2 (09:02→17:28)
[2020-08-16] MEDS: AMITRIPTYLINE 25 MG TABLET PO SCH ×2 (09:02→20:42)
[2020-08-16] MEDS: hydrALAZINE 25 MG TABLET PO SCH ×3 (09:02→20:42)
[2020-08-16] MEDS: MEMANTINE 10 MG TABLET PO SCH ×2 (09:02→20:42)
[2020-08-16] MEDS: POLYETHYLENE GLYCOL POWDER 17 GM PACK PO SCH (09:02)
[2020-08-16] MEDS: PANTOPRAZOLE 40 MG TABLET PO SCH (09:02)
[2020-08-16] MEDS: LOSARTAN 50 MG TABLET PO SCH ×2 (09:13→20:42)
[2020-08-16] MEDS: carvediloL 12.5 MG TABLET PO SCH ×2 (09:13→20:42)
[2020-08-16] MEDS: CALCIUM (CARBONATE)/VITAMIN D 500 MG-200 UNIT TABLET PO SCH ×2 (09:14→20:43)
[2020-08-16] MEDS: cefTRIAXone 1,000 MG in SODIUM CHLORIDE 0.9% 100 ML IV SCH (13:49)
[2020-08-16] MEDS: AZITHROMYCIN INJ 500 MG in SODIUM CHLORIDE 0.9% 250 ML IV SCH (14:26)
[2020-08-16] MEDS: ARIPiprazole 2 MG TABLET PO SCH (20:42)
[2020-08-17] MEDS: ALBUTEROL/IPRATROPIUM 3 ML NEB RESP TX SCH ×2 (00:57→07:00)
[2020-08-17 04:45] LABS: Basophils % 0.4 % (0.0-0.8); Eosinophils # 0.2 10*3/uL (0.0-0.87); Eosinophils % 3.5 % (0.00-10.9); Hematocrit 29.7 VOL% (35.7-47.0); Hemoglobin 9.2 GM/DL (12.0-16.0); Immature Granulocytes % 1.3 %; Immature Granulocytes Absolute 0.06 #; Lymphocytes # 1.2 10*3/uL (1.4-4.0); Lymphocytes % 25.2 % (21.3-54.2); Mean Corpuscular Volume 92.2 FL (87-102); Mean Platelet Volume 10.6 FL (9.6-12.0); Monocytes % 12.1 % (1.7-12.7); Neutrophils % 57.5 % (38.7-73.9); Platelet Count 219 T/CUMM (130-400); Red Blood Count 3.22 MC/CUMM (3.8-5.5); Red Cell Distribution Width 13.7 % (9.3-17.3); White Blood Count 4.6 T/CUMM (4-12)
[2020-08-17 05:01] LABS: Calcium 9.2 MG/DL (8.5-10.1); Osmolality,Calculated 274.8 MOS/KG (273-304)
[2020-08-17 05:05] LABS: Potassium 3.5 MMOL/L (3.5-5.1)
[2020-08-17] MEDS: LOSARTAN 50 MG TABLET PO SCH (08:26)
[2020-08-17] MEDS: carvediloL 12.5 MG TABLET PO SCH (08:26)
[2020-08-17] MEDS: predniSONE 1 MG TABLET PO SCH (08:27)
[2020-08-17] MEDS: FUROSEMIDE 40 MG/4 ML VIAL IV SCH (08:27)
[2020-08-17] MEDS: AMITRIPTYLINE 25 MG TABLET PO SCH (08:27)
[2020-08-17] MEDS: POTASSIUM CHLORIDE 20 MEQ TABLET PO SCH (08:27)
[2020-08-17] MEDS: PANTOPRAZOLE 40 MG TABLET PO SCH (08:27)
[2020-08-17] MEDS: GABAPENTIN 300 MG CAPSULE PO SCH ×2 (08:27→13:51)
[2020-08-17] MEDS: hydrALAZINE 25 MG TABLET PO SCH (08:27)
[2020-08-17] MEDS: MEMANTINE 10 MG TABLET PO SCH (08:27)
[2020-08-17] MEDS: FERROUS SULFATE 325 MG TABLET PO SCH (08:27)
[2020-08-17] MEDS: CALCIUM (CARBONATE)/VITAMIN D 500 MG-200 UNIT TABLET PO SCH (08:28)
[2020-08-17] MEDS: LEVOTHYROXINE 75 MCG TABLET PO SCH (08:28)
[2020-08-17] MEDS: POLYETHYLENE GLYCOL POWDER 17 GM PACK PO SCH (08:33)
[2020-08-17] MEDS ORDERED: AMOXICILLIN/CLAV 875 MG TABLET PO SCH (10:00)
[2020-08-17 11:01] VITALS: BP 155/82
[2020-08-17] MEDS: AZITHROMYCIN INJ 500 MG in SODIUM CHLORIDE 0.9% 250 ML IV SCH (13:51)
== END 2020-08-17 15:03 | disposition home health service (06) | DRG 291 ==
LOC: N.ED 10:51 → N.EDINP 10:51 → SUATTDRO 14:45 → N.4E 15:38 → SUATTDRO 08-14 07:38
PROVIDERS: ADMIT Internal Medicine; ATTEND Student in an Organized Health Care Education/Training Program

== ENCOUNTER 2020-10-21 19:33 | Inpatient (IN) ==
[2020-10-21] MEDS ORDERED: SODIUM CHLORIDE 0.9% 1,000 ML IV STA (20:25)
[2020-10-21 22:17] LABS: Basophils % 0.3 % (0.0-0.8); Eosinophils % 0.6 % (0.00-10.9); Mean Corpuscular HGB Conc 29.7 GM/DL (32-36); Red Blood Count 3.94 MC/CUMM (3.8-5.5)
[2020-10-21 22:23] LABS: Bilirubin,Urine Negative (Negative); Blood, Urine Negative (Negative); Glucose,Urine (UA) Negative (Negative); Ketones,Urine Negative (Negative); Mucus,Urine Occasional /LPF (Occasional); Nitrite,Urine Negative (Negative); Protein,Urine Negative; RBC,Urine 4 /HPF (0-4); Squamous Epithelial Cell,Urine Occasional /HPF (0-10); Urine Appearance CLEAR (Clear); Urine Color Yellow (Yellow); Urine Specific Gravity 1.011 (1.001-1.035); Urine Urobilinogen < 2.0 EU/DL (0.2-1.0)
[2020-10-21 22:31] LABS: PT Patient Result 11.6 SECS (10.5-12.0); Partial Thromboplastin Time 26.5 SECS (23.9-33.8)
[2020-10-21 22:40] LABS: Hematocrit 37.7 VOL% (35.7-47.0); Immature Granulocytes % 0.9 %; Immature Granulocytes Absolute 0.03 #; Lymphocytes # 0.5 10*3/uL (1.4-4.0); Lymphocytes % 15.4 % (21.3-54.2); Mean Corpuscular Volume 95.7 FL (87-102); Mean Platelet Volume 10.6 FL (9.6-12.0); Monocytes % 14.5 % (1.7-12.7); Neutrophils % 68.3 % (38.7-73.9); Platelet Count 173 T/CUMM (130-400); Red Cell Distribution Width 16.3 % (9.3-17.3); White Blood Count 3.4 T/CUMM (4-12)
[2020-10-21 22:43] LABS: Hemoglobin 11.2 GM/DL (12.0-16.0)
[2020-10-22 00:07] LABS: Albumin 2.8 G/DL (3.4-5.0); Bilirubin,Total 0.5 MG/DL (0.20-1.00); Calcium 9.3 MG/DL (8.5-10.1); Osmolality,Calculated 273.8 MOS/KG (273-304); Potassium 4.7 MMOL/L (3.5-5.1); Thyroid Stimulating Hormone 3.3 uIU/ml (0.358-3.74); Total Protein 6.1 G/DL (6.4-8.2)
[2020-10-22] MEDS ORDERED: hydrALAZINE 20 MG/1 ML VIAL IV STA (00:12)
[2020-10-22] MEDS ORDERED: cefTRIAXone 1,000 MG in SODIUM CHLORIDE 0.9% 100 ML IV STA (00:27)
[2020-10-22 01:36] LABS: Ferritin 85.2 ng/ml (8-252)
[2020-10-22] MEDS ORDERED: MAGNESIUM SULF RIDER 4 GM/100 ML PREMIX IV PRN (01:45)
[2020-10-22] MEDS ORDERED: MAGNESIUM SULF RIDER 2 GM/50 ML PREMIX IV PRN (01:45)
[2020-10-22] MEDS ORDERED: AZITHROMYCIN INJ 500 MG in SODIUM CHLORIDE 0.9% 250 ML IV ONE (01:45)
[2020-10-22] MEDS ORDERED: ACETAMINOPHEN 325 MG TABLET PO PRN (01:45)
[2020-10-22] MEDS ORDERED: ENOXAPARIN 40 MG/0.4 ML SYRINGE SUBCUT SCH (02:00)
[2020-10-22] MEDS: hydrALAZINE 20 MG/1 ML VIAL IV PRN ×3 (02:11→09:09)
[2020-10-22 08:57] LABS: Basophils % 0.6 % (0.0-0.8); Eosinophils % 0.2 % (0.00-10.9); Hematocrit 42.3 VOL% (35.7-47.0); Immature Granulocytes % 1.3 %; Immature Granulocytes Absolute 0.07 #; Lymphocytes # 0.5 10*3/uL (1.4-4.0); Lymphocytes % 8.3 % (21.3-54.2); Mean Corpuscular HGB Conc 29.6 GM/DL (32-36); Mean Corpuscular Volume 96.6 FL (87-102); Mean Platelet Volume 10.6 FL (9.6-12.0); Monocytes % 8.5 % (1.7-12.7); Neutrophils % 81.1 % (38.7-73.9); Platelet Count 182 T/CUMM (130-400); Red Blood Count 4.38 MC/CUMM (3.8-5.5); Red Cell Distribution Width 16.5 % (9.3-17.3); White Blood Count 5.4 T/CUMM (4-12)
[2020-10-22 08:58] LABS: Hemoglobin 12.5 GM/DL (12.0-16.0)
[2020-10-22 09:05] LABS: Bilirubin,Total 0.4 MG/DL (0.20-1.00); Calcium 8.8 MG/DL (8.5-10.1); Ferritin 106.3 ng/ml (8-252); Osmolality,Calculated 273.8 MOS/KG (273-304); Potassium 4.6 MMOL/L (3.5-5.1); Total Protein 6.8 G/DL (6.4-8.2)
[2020-10-22] MEDS: DEXAMETHASONE 4 MG/1 ML VIAL IV SCH (09:10)
[2020-10-22] MEDS: FUROSEMIDE 40 MG/4 ML VIAL IV SCH ×2 (09:11→15:51)
[2020-10-22] MEDS: ENOXAPARIN 40 MG/0.4 ML SYRINGE SUBCUT SCH (09:12)
[2020-10-22] MEDS: FAMOTIDINE 20 MG TABLET PO SCH ×2 (09:13→21:58)
[2020-10-22] MEDS: PANTOPRAZOLE 40 MG TABLET PO SCH (09:13)
[2020-10-22] MEDS: CETIRIZINE 10 MG TABLET PO SCH (09:14)
[2020-10-22] MEDS: CHOLECALCIFEROL 1,000 UNIT TABLET PO SCH (09:14)
[2020-10-22] MEDS: ASCORBIC ACID 500 MG TABLET PO SCH ×2 (09:14→21:58)
[2020-10-22] MEDS: LOSARTAN 50 MG TABLET PO SCH ×2 (10:54→21:59)
[2020-10-22] MEDS: FERROUS SULFATE 325 MG TABLET PO SCH ×2 (12:04→21:58)
[2020-10-22] MEDS: ZINC GLUCONATE 50 MG TABLET PO SCH (12:04)
[2020-10-22] MEDS: carvediloL 12.5 MG TABLET PO SCH ×2 (12:04→21:59)
[2020-10-22] MEDS: LEVOTHYROXINE 75 MCG TABLET PO SCH (12:04)
[2020-10-22] MEDS: MEMANTINE 10 MG TABLET PO SCH ×2 (12:04→21:58)
[2020-10-22] MEDS: IVERMECTIN 3 MG TABLET PO SCH (15:51)
[2020-10-22] MEDS: hydrALAZINE 25 MG TABLET PO SCH ×2 (15:51→21:58)
[2020-10-23] MEDS ORDERED: AZITHROMYCIN INJ 500 MG in SODIUM CHLORIDE 0.9% 250 ML IV SCH (02:00)
[2020-10-23 06:26] LABS: Basophils % 0.2 % (0.0-0.8); Eosinophils % 0.2 % (0.00-10.9); Immature Granulocytes % 0.5 %; Immature Granulocytes Absolute 0.02 #; Lymphocytes # 0.8 10*3/uL (1.4-4.0); Lymphocytes % 19.8 % (21.3-54.2); Mean Corpuscular HGB Conc 29.7 GM/DL (32-36); Mean Corpuscular Volume 94.6 FL (87-102); Mean Platelet Volume 10.1 FL (9.6-12.0); Monocytes % 16.5 % (1.7-12.7); Neutrophils % 62.8 % (38.7-73.9); Platelet Count 187 T/CUMM (130-400); Red Blood Count 3.91 MC/CUMM (3.8-5.5); Red Cell Distribution Width 16.1 % (9.3-17.3); White Blood Count 4.2 T/CUMM (4-12)
[2020-10-23 06:49] LABS: Calcium 8.8 MG/DL (8.5-10.1); Potassium 3.2 MMOL/L (3.5-5.1)
[2020-10-23 06:54] LABS: Hypochromasia 1+; Lymphocytes 17 % (20-55); Microcytosis 1+; Platelet Estimate Adequate; Segmented Neutrophils 72 % (50-85); Total Cells Counted 100
[2020-10-23] MEDS: cefTRIAXone 1,000 MG in SODIUM CHLORIDE 0.9% 100 ML IV SCH (08:44)
[2020-10-23] MEDS: PANTOPRAZOLE 40 MG TABLET PO SCH (08:45)
[2020-10-23] MEDS: CETIRIZINE 10 MG TABLET PO SCH (08:45)
[2020-10-23] MEDS: POTASSIUM CHLORIDE 20 MEQ TABLET PO PRN ×2 (08:45→15:03)
[2020-10-23] MEDS: CHOLECALCIFEROL 1,000 UNIT TABLET PO SCH (08:45)
[2020-10-23] MEDS: hydrALAZINE 25 MG TABLET PO SCH ×3 (08:45→20:24)
[2020-10-23] MEDS: FAMOTIDINE 20 MG TABLET PO SCH ×2 (08:46→20:24)
[2020-10-23] MEDS: MEMANTINE 10 MG TABLET PO SCH ×2 (08:46→20:24)
[2020-10-23] MEDS: LOSARTAN 50 MG TABLET PO SCH ×2 (08:46→20:24)
[2020-10-23] MEDS: carvediloL 12.5 MG TABLET PO SCH ×2 (08:46→20:24)
[2020-10-23] MEDS: LEVOTHYROXINE 75 MCG TABLET PO SCH (08:46)
[2020-10-23] MEDS: ZINC GLUCONATE 50 MG TABLET PO SCH (08:46)
[2020-10-23] MEDS: FERROUS SULFATE 325 MG TABLET PO SCH ×2 (08:46→20:24)
[2020-10-23] MEDS: ASCORBIC ACID 500 MG TABLET PO SCH ×2 (08:46→20:24)
[2020-10-23] MEDS: DEXAMETHASONE 4 MG/1 ML VIAL IV SCH (08:47)
[2020-10-23] MEDS: FUROSEMIDE 40 MG/4 ML VIAL IV SCH ×2 (08:47→15:02)
[2020-10-23] MEDS: IVERMECTIN 3 MG TABLET PO SCH (11:17)
[2020-10-23] MEDS: ENOXAPARIN 40 MG/0.4 ML SYRINGE SUBCUT SCH (11:17)
[2020-10-23] MEDS: MELATONIN 3 MG TABLET PO PRN (20:24)
[2020-10-24] MEDS: hydrALAZINE 20 MG/1 ML VIAL IV PRN ×2 (00:23→09:52)
[2020-10-24 06:45] LABS: Basophils % 0.6 % (0.0-0.8); Hematocrit 46.1 VOL% (35.7-47.0); Hemoglobin 13.4 GM/DL (12.0-16.0); Immature Granulocytes % 0.6 %; Immature Granulocytes Absolute 0.03 #; Lymphocytes # 0.8 10*3/uL (1.4-4.0); Lymphocytes % 15.6 % (21.3-54.2); Mean Corpuscular HGB Conc 29.1 GM/DL (32-36); Mean Corpuscular Volume 98.7 FL (87-102); Mean Platelet Volume 9.9 FL (9.6-12.0); Monocytes % 15.2 % (1.7-12.7); Platelet Count 184 T/CUMM (130-400); Red Blood Count 4.67 MC/CUMM (3.8-5.5); Red Cell Distribution Width 16.1 % (9.3-17.3); White Blood Count 4.9 T/CUMM (4-12)
[2020-10-24 07:15] LABS: Calcium 9.3 MG/DL (8.5-10.1); Osmolality,Calculated 262.8 MOS/KG (273-304); Potassium 3.5 MMOL/L (3.5-5.1)
[2020-10-24] MEDS: FUROSEMIDE 40 MG/4 ML VIAL IV SCH ×2 (09:06→15:10)
[2020-10-24] MEDS: FAMOTIDINE 20 MG TABLET PO SCH ×2 (09:06→22:27)
[2020-10-24] MEDS: carvediloL 12.5 MG TABLET PO SCH ×2 (09:06→22:26)
[2020-10-24] MEDS: CHOLECALCIFEROL 1,000 UNIT TABLET PO SCH (09:06)
[2020-10-24] MEDS: hydrALAZINE 25 MG TABLET PO SCH ×3 (09:06→22:26)
[2020-10-24] MEDS: ASCORBIC ACID 500 MG TABLET PO SCH ×2 (09:06→22:26)
[2020-10-24] MEDS: FERROUS SULFATE 325 MG TABLET PO SCH ×2 (09:06→22:26)
[2020-10-24] MEDS: LOSARTAN 50 MG TABLET PO SCH ×2 (09:06→22:26)
[2020-10-24] MEDS: IVERMECTIN 3 MG TABLET PO SCH (09:06)
[2020-10-24] MEDS: CETIRIZINE 10 MG TABLET PO SCH (09:06)
[2020-10-24] MEDS: PANTOPRAZOLE 40 MG TABLET PO SCH (09:06)
[2020-10-24] MEDS: ZINC GLUCONATE 50 MG TABLET PO SCH (09:06)
[2020-10-24] MEDS: AZITHROMYCIN 250 MG TABLET PO SCH (09:06)
[2020-10-24] MEDS: DEXAMETHASONE 4 MG/1 ML VIAL IV SCH (09:07)
[2020-10-24] MEDS: MEMANTINE 10 MG TABLET PO SCH ×2 (09:07→22:27)
[2020-10-24] MEDS: LEVOTHYROXINE 75 MCG TABLET PO SCH (09:07)
[2020-10-24] MEDS: ENOXAPARIN 40 MG/0.4 ML SYRINGE SUBCUT SCH (09:07)
[2020-10-24] MEDS: ONDANSETRON 4 MG/2 ML VIAL IV PRN ×2 (09:50→17:25)
[2020-10-24] MEDS: cefTRIAXone 1,000 MG in SODIUM CHLORIDE 0.9% 100 ML IV SCH (11:04)
[2020-10-24] MEDS: MELATONIN 3 MG TABLET PO PRN (22:27)
[2020-10-25 05:47] LABS: Hematocrit 37.9 VOL% (35.7-47.0); Hemoglobin 11.3 GM/DL (12.0-16.0); Immature Granulocytes % 0.6 %; Immature Granulocytes Absolute 0.02 #; Lymphocytes # 0.6 10*3/uL (1.4-4.0); Lymphocytes % 16.6 % (21.3-54.2); Mean Corpuscular HGB Conc 29.8 GM/DL (32-36); Mean Platelet Volume 10.6 FL (9.6-12.0); Monocytes % 13.9 % (1.7-12.7); Neutrophils % 68.9 % (38.7-73.9); Platelet Count 186 T/CUMM (130-400); Red Blood Count 4.03 MC/CUMM (3.8-5.5); Red Cell Distribution Width 15.9 % (9.3-17.3); White Blood Count 3.4 T/CUMM (4-12)
[2020-10-25 06:09] LABS: Calcium 8.7 MG/DL (8.5-10.1); Ferritin 166.1 ng/ml (8-252); Potassium 2.9 MMOL/L (3.5-5.1)
[2020-10-25 06:14] LABS: Osmolality,Calculated 271.8 MOS/KG (273-304)
[2020-10-25] MEDS: FUROSEMIDE 40 MG/4 ML VIAL IV SCH ×2 (08:55→20:51)
[2020-10-25] MEDS: DEXAMETHASONE 4 MG/1 ML VIAL IV SCH (09:33)
[2020-10-25] MEDS: cefTRIAXone 1,000 MG in SODIUM CHLORIDE 0.9% 100 ML IV SCH (09:33)
[2020-10-25] MEDS: AZITHROMYCIN 250 MG TABLET PO SCH (09:34)
[2020-10-25] MEDS: POTASSIUM CHLORIDE 20 MEQ TABLET PO PRN (09:42)
[2020-10-25] MEDS: carvediloL 12.5 MG TABLET PO SCH ×2 (09:42→20:45)
[2020-10-25] MEDS: LEVOTHYROXINE 75 MCG TABLET PO SCH (09:42)
[2020-10-25] MEDS: LOSARTAN 50 MG TABLET PO SCH ×2 (09:43→20:45)
[2020-10-25] MEDS: CETIRIZINE 10 MG TABLET PO SCH (09:44)
[2020-10-25] MEDS: PANTOPRAZOLE 40 MG TABLET PO SCH (09:45)
[2020-10-25] MEDS: MEMANTINE 10 MG TABLET PO SCH ×2 (09:45→20:46)
[2020-10-25] MEDS: hydrALAZINE 25 MG TABLET PO SCH ×3 (09:45→20:46)
[2020-10-25] MEDS: FAMOTIDINE 20 MG TABLET PO SCH ×2 (09:46→20:46)
[2020-10-25] MEDS: ASCORBIC ACID 500 MG TABLET PO SCH ×2 (09:47→20:46)
[2020-10-25] MEDS: FERROUS SULFATE 325 MG TABLET PO SCH ×2 (09:48→20:46)
[2020-10-25] MEDS: ZINC GLUCONATE 50 MG TABLET PO SCH (09:48)
[2020-10-25] MEDS: CHOLECALCIFEROL 1,000 UNIT TABLET PO SCH (09:48)
[2020-10-25] MEDS: ENOXAPARIN 40 MG/0.4 ML SYRINGE SUBCUT SCH (09:51)
[2020-10-25] MEDS: IVERMECTIN 3 MG TABLET PO SCH (12:40)
[2020-10-25] MEDS ORDERED: POTASSIUM CHLORIDE 20 MEQ TABLET PO SCH (13:00)
[2020-10-25] MEDS: POTASSIUM BICARB EFFERVESCENT 20 MEQ TAB.EFF PO SCH ×2 (15:18→16:54)
[2020-10-25] MEDS: MELATONIN 3 MG TABLET PO PRN (20:46)
[2020-10-26 06:29] LABS: Hematocrit 39.5 VOL% (35.7-47.0); Hemoglobin 11.9 GM/DL (12.0-16.0); Immature Granulocytes % 0.6 %; Immature Granulocytes Absolute 0.02 #; Lymphocytes # 0.7 10*3/uL (1.4-4.0); Lymphocytes % 22.6 % (21.3-54.2); Mean Corpuscular HGB Conc 30.1 GM/DL (32-36); Mean Corpuscular Volume 93.8 FL (87-102); Mean Platelet Volume 10.8 FL (9.6-12.0); Monocytes % 15.5 % (1.7-12.7); Neutrophils % 61.3 % (38.7-73.9); Platelet Count 175 T/CUMM (130-400); Red Blood Count 4.21 MC/CUMM (3.8-5.5); Red Cell Distribution Width 15.8 % (9.3-17.3); White Blood Count 3.3 T/CUMM (4-12)
[2020-10-26 06:58] LABS: Calcium 9.1 MG/DL (8.5-10.1); Ferritin 394.9 ng/ml (8-252); Osmolality,Calculated 261.7 MOS/KG (273-304); Potassium 4.2 MMOL/L (3.5-5.1)
[2020-10-26 07:06] LABS: Lymphocytes 19 % (20-55); Segmented Neutrophils 68 % (50-85); Total Cells Counted 100
[2020-10-26 07:07] LABS: Hypochromasia 1+; Microcytosis 1+; Platelet Estimate Adequate
[2020-10-26] MEDS: DEXAMETHASONE 4 MG/1 ML VIAL IV SCH (09:43)
[2020-10-26] MEDS: FUROSEMIDE 40 MG/4 ML VIAL IV SCH ×2 (09:43→16:35)
[2020-10-26] MEDS: FERROUS SULFATE 325 MG TABLET PO SCH ×3 (09:44→21:01)
[2020-10-26] MEDS: cefTRIAXone 1,000 MG in SODIUM CHLORIDE 0.9% 100 ML IV SCH (09:44)
[2020-10-26] MEDS: AZITHROMYCIN 250 MG TABLET PO SCH (09:44)
[2020-10-26] MEDS: ENOXAPARIN 40 MG/0.4 ML SYRINGE SUBCUT SCH (09:44)
[2020-10-26] MEDS: LOSARTAN 50 MG TABLET PO SCH ×3 (09:45→21:00)
[2020-10-26] MEDS: CHOLECALCIFEROL 1,000 UNIT TABLET PO SCH (09:45)
[2020-10-26] MEDS: PANTOPRAZOLE 40 MG TABLET PO SCH (09:45)
[2020-10-26] MEDS: carvediloL 12.5 MG TABLET PO SCH ×3 (09:45→21:00)
[2020-10-26] MEDS: ASCORBIC ACID 500 MG TABLET PO SCH ×3 (09:45→21:00)
[2020-10-26] MEDS: CETIRIZINE 10 MG TABLET PO SCH (09:45)
[2020-10-26] MEDS: MEMANTINE 10 MG TABLET PO SCH ×3 (09:45→21:00)
[2020-10-26] MEDS: hydrALAZINE 25 MG TABLET PO SCH ×4 (09:45→20:59)
[2020-10-26] MEDS: FAMOTIDINE 20 MG TABLET PO SCH ×3 (09:45→21:00)
[2020-10-26] MEDS: ZINC GLUCONATE 50 MG TABLET PO SCH (09:45)
[2020-10-26] MEDS: LEVOTHYROXINE 75 MCG TABLET PO SCH (09:46)
[2020-10-26] MEDS: IVERMECTIN 3 MG TABLET PO SCH (09:46)
[2020-10-26] MEDS: hydrALAZINE 20 MG/1 ML VIAL IV PRN (16:37)
[2020-10-27] MEDS: hydrALAZINE 20 MG/1 ML VIAL IV PRN (05:27)
[2020-10-27 06:24] LABS: Calcium 9.2 MG/DL (8.5-10.1); Ferritin 663.8 ng/ml (8-252); Osmolality,Calculated 267.2 MOS/KG (273-304); Potassium 3.5 MMOL/L (3.5-5.1)
[2020-10-27 06:25] LABS: Eosinophils % 0.3 % (0.00-10.9); Hematocrit 42.1 VOL% (35.7-47.0); Hemoglobin 12.6 GM/DL (12.0-16.0); Immature Granulocytes % 0.9 %; Immature Granulocytes Absolute 0.03 #; Lymphocytes # 0.7 10*3/uL (1.4-4.0); Lymphocytes % 20.3 % (21.3-54.2); Mean Corpuscular HGB Conc 29.9 GM/DL (32-36); Mean Corpuscular Volume 93.1 FL (87-102); Mean Platelet Volume 10.4 FL (9.6-12.0); Monocytes % 14.7 % (1.7-12.7); Neutrophils % 63.8 % (38.7-73.9); Platelet Count 180 T/CUMM (130-400); Red Blood Count 4.52 MC/CUMM (3.8-5.5); Red Cell Distribution Width 15.6 % (9.3-17.3); White Blood Count 3.2 T/CUMM (4-12)
[2020-10-27 06:26] LABS: Hypochromasia 1+; Microcytosis 1+; Ovalocytes Slight
[2020-10-27 06:27] LABS: Platelet Estimate Adequate
[2020-10-27] MEDS: cefTRIAXone 1,000 MG in SODIUM CHLORIDE 0.9% 100 ML IV SCH (09:47)
[2020-10-27] MEDS: FUROSEMIDE 40 MG/4 ML VIAL IV SCH ×2 (09:47→17:05)
[2020-10-27] MEDS: ENOXAPARIN 40 MG/0.4 ML SYRINGE SUBCUT SCH (09:47)
[2020-10-27] MEDS: DEXAMETHASONE 4 MG/1 ML VIAL IV SCH (09:48)
[2020-10-27] MEDS: MEMANTINE 10 MG TABLET PO SCH ×2 (10:34→22:35)
[2020-10-27] MEDS: LOSARTAN 50 MG TABLET PO SCH ×2 (10:34→22:35)
[2020-10-27] MEDS: carvediloL 12.5 MG TABLET PO SCH ×2 (10:34→22:35)
[2020-10-27] MEDS: FERROUS SULFATE 325 MG TABLET PO SCH ×2 (10:34→22:35)
[2020-10-27] MEDS: hydrALAZINE 25 MG TABLET PO SCH ×3 (10:34→22:35)
[2020-10-27] MEDS: CETIRIZINE 10 MG TABLET PO SCH (10:35)
[2020-10-27] MEDS: ZINC GLUCONATE 50 MG TABLET PO SCH (10:35)
[2020-10-27] MEDS: LEVOTHYROXINE 75 MCG TABLET PO SCH (10:35)
[2020-10-27] MEDS: FAMOTIDINE 20 MG TABLET PO SCH ×2 (10:35→22:35)
[2020-10-27] MEDS: ASCORBIC ACID 500 MG TABLET PO SCH ×2 (10:35→22:35)
[2020-10-27] MEDS: CHOLECALCIFEROL 1,000 UNIT TABLET PO SCH (10:35)
[2020-10-27] MEDS: PANTOPRAZOLE 40 MG TABLET PO SCH (10:35)
[2020-10-27] MEDS: AZITHROMYCIN INJ 500 MG in SODIUM CHLORIDE 0.9% 250 ML IV SCH (22:42)
[2020-10-28] MEDS: hydrALAZINE 20 MG/1 ML VIAL IV PRN ×2 (00:30→09:04)
[2020-10-28 06:15] LABS: Basophils % 0.4 % (0.0-0.8); Immature Granulocytes % 0.5 %; Immature Granulocytes Absolute 0.03 #; Lymphocytes # 0.7 10*3/uL (1.4-4.0); Mean Corpuscular HGB Conc 31.8 GM/DL (32-36); Mean Corpuscular Volume 89.8 FL (87-102); Mean Platelet Volume 10.9 FL (9.6-12.0); Monocytes % 7.4 % (1.7-12.7); Neutrophils % 79.7 % (38.7-73.9); Platelet Count 214 T/CUMM (130-400); Red Cell Distribution Width 15.5 % (9.3-17.3); White Blood Count 5.5 T/CUMM (4-12)
[2020-10-28 06:38] LABS: Calcium 9.5 MG/DL (8.5-10.1); Ferritin 987.1 ng/ml (8-252); Osmolality,Calculated 279.8 MOS/KG (273-304); Potassium 2.7 MMOL/L (3.5-5.1)
[2020-10-28] MEDS: cefTRIAXone 1,000 MG in SODIUM CHLORIDE 0.9% 100 ML IV SCH (09:03)
[2020-10-28] MEDS: DEXAMETHASONE 4 MG/1 ML VIAL IV SCH (09:03)
[2020-10-28] MEDS: ASCORBIC ACID 500 MG TABLET PO SCH ×2 (09:04→22:43)
[2020-10-28] MEDS: CETIRIZINE 10 MG TABLET PO SCH (09:04)
[2020-10-28] MEDS: ENOXAPARIN 40 MG/0.4 ML SYRINGE SUBCUT SCH (09:04)
[2020-10-28] MEDS: MEMANTINE 10 MG TABLET PO SCH ×2 (09:04→22:42)
[2020-10-28] MEDS: FUROSEMIDE 40 MG/4 ML VIAL IV SCH ×2 (09:04→17:04)
[2020-10-28] MEDS: ZINC GLUCONATE 50 MG TABLET PO SCH (09:05)
[2020-10-28] MEDS: CHOLECALCIFEROL 1,000 UNIT TABLET PO SCH (09:05)
[2020-10-28] MEDS: PANTOPRAZOLE 40 MG TABLET PO SCH (09:05)
[2020-10-28] MEDS: POTASSIUM CHLORIDE 20 MEQ TABLET PO PRN ×4 (09:05→17:04)
[2020-10-28] MEDS: LOSARTAN 50 MG TABLET PO SCH ×2 (09:05→22:42)
[2020-10-28] MEDS: FAMOTIDINE 20 MG TABLET PO SCH ×2 (09:05→22:42)
[2020-10-28] MEDS: hydrALAZINE 25 MG TABLET PO SCH ×3 (09:05→22:42)
[2020-10-28] MEDS: FERROUS SULFATE 325 MG TABLET PO SCH ×2 (09:05→22:42)
[2020-10-28] MEDS: LEVOTHYROXINE 75 MCG TABLET PO SCH (09:05)
[2020-10-28] MEDS: carvediloL 12.5 MG TABLET PO SCH ×2 (09:05→22:42)
[2020-10-28] MEDS: AZITHROMYCIN INJ 500 MG in SODIUM CHLORIDE 0.9% 250 ML IV SCH (22:43)
[2020-10-29 06:49] LABS: Calcium 9.8 MG/DL (8.5-10.1); Ferritin 993.4 ng/ml (8-252); Osmolality,Calculated 282.7 MOS/KG (273-304); Potassium 3.5 MMOL/L (3.5-5.1)
[2020-10-29 07:08] LABS: Hematocrit 42.8 VOL% (35.7-47.0); Hemoglobin 12.7 GM/DL (12.0-16.0); Immature Granulocytes % 1.1 %; Immature Granulocytes Absolute 0.05 #; Lymphocytes # 0.9 10*3/uL (1.4-4.0); Lymphocytes % 19.7 % (21.3-54.2); Mean Corpuscular HGB Conc 29.7 GM/DL (32-36); Mean Corpuscular Volume 94.3 FL (87-102); Mean Platelet Volume 11.1 FL (9.6-12.0); Monocytes % 7.9 % (1.7-12.7); Neutrophils % 71.3 % (38.7-73.9); Platelet Count 176 T/CUMM (130-400); Red Blood Count 4.54 MC/CUMM (3.8-5.5); Red Cell Distribution Width 15.6 % (9.3-17.3); White Blood Count 4.6 T/CUMM (4-12)
[2020-10-29] MEDS: LEVOTHYROXINE 75 MCG TABLET PO SCH (08:20)
[2020-10-29] MEDS: ASCORBIC ACID 500 MG TABLET PO SCH ×2 (08:20→20:55)
[2020-10-29] MEDS: CETIRIZINE 10 MG TABLET PO SCH (08:20)
[2020-10-29] MEDS: PANTOPRAZOLE 40 MG TABLET PO SCH (08:20)
[2020-10-29] MEDS: hydrALAZINE 25 MG TABLET PO SCH ×3 (08:21→20:55)
[2020-10-29] MEDS: FERROUS SULFATE 325 MG TABLET PO SCH ×2 (08:21→20:55)
[2020-10-29] MEDS: ZINC GLUCONATE 50 MG TABLET PO SCH (08:21)
[2020-10-29] MEDS: LOSARTAN 50 MG TABLET PO SCH ×2 (08:21→20:55)
[2020-10-29] MEDS: carvediloL 12.5 MG TABLET PO SCH ×2 (08:21→20:55)
[2020-10-29] MEDS: CHOLECALCIFEROL 1,000 UNIT TABLET PO SCH (08:21)
[2020-10-29] MEDS: MEMANTINE 10 MG TABLET PO SCH ×2 (08:21→20:55)
[2020-10-29] MEDS: ENOXAPARIN 40 MG/0.4 ML SYRINGE SUBCUT SCH (08:21)
[2020-10-29] MEDS: FUROSEMIDE 40 MG/4 ML VIAL IV SCH ×2 (08:22→17:38)
[2020-10-29] MEDS: DEXAMETHASONE 4 MG/1 ML VIAL IV SCH (08:22)
[2020-10-29] MEDS: cefTRIAXone 1,000 MG in SODIUM CHLORIDE 0.9% 100 ML IV SCH (08:22)
[2020-10-29] MEDS: FAMOTIDINE 20 MG TABLET PO SCH ×2 (08:22→20:55)
[2020-10-30] MEDS: hydrALAZINE 20 MG/1 ML VIAL IV PRN (03:55)
[2020-10-30 06:34] LABS: Basophils % 0.2 % (0.0-0.8); Hematocrit 41.5 VOL% (35.7-47.0); Hemoglobin 12.5 GM/DL (12.0-16.0); Immature Granulocytes % 1.5 %; Immature Granulocytes Absolute 0.07 #; Lymphocytes # 0.6 10*3/uL (1.4-4.0); Lymphocytes % 13.6 % (21.3-54.2); Mean Corpuscular HGB Conc 30.1 GM/DL (32-36); Mean Corpuscular Volume 92.4 FL (87-102); Mean Platelet Volume 10.8 FL (9.6-12.0); Monocytes % 9.7 % (1.7-12.7); Platelet Count 197 T/CUMM (130-400); Red Blood Count 4.49 MC/CUMM (3.8-5.5); Red Cell Distribution Width 15.3 % (9.3-17.3); White Blood Count 4.7 T/CUMM (4-12)
[2020-10-30 07:00] LABS: Calcium 9.6 MG/DL (8.5-10.1); Potassium 2.9 MMOL/L (3.5-5.1)
[2020-10-30 07:03] LABS: Osmolality,Calculated 285.4 MOS/KG (273-304)
[2020-10-30] MEDS: ZINC GLUCONATE 50 MG TABLET PO SCH (10:55)
[2020-10-30] MEDS: CETIRIZINE 10 MG TABLET PO SCH (10:55)
[2020-10-30] MEDS: CHOLECALCIFEROL 1,000 UNIT TABLET PO SCH (10:55)
[2020-10-30] MEDS: LOSARTAN 50 MG TABLET PO SCH ×2 (10:55→20:24)
[2020-10-30] MEDS: hydrALAZINE 25 MG TABLET PO SCH ×3 (10:55→20:23)
[2020-10-30] MEDS: MEMANTINE 10 MG TABLET PO SCH ×2 (10:55→20:24)
[2020-10-30] MEDS: FERROUS SULFATE 325 MG TABLET PO SCH ×2 (10:55→20:24)
[2020-10-30] MEDS: FAMOTIDINE 20 MG TABLET PO SCH ×2 (10:55→20:24)
[2020-10-30] MEDS: FUROSEMIDE 40 MG/4 ML VIAL IV SCH ×2 (10:55→16:50)
[2020-10-30] MEDS: ASCORBIC ACID 500 MG TABLET PO SCH ×2 (10:55→20:24)
[2020-10-30] MEDS: cefTRIAXone 1,000 MG in SODIUM CHLORIDE 0.9% 100 ML IV SCH (10:55)
[2020-10-30] MEDS: carvediloL 12.5 MG TABLET PO SCH ×2 (10:55→20:24)
[2020-10-30] MEDS: LEVOTHYROXINE 75 MCG TABLET PO SCH (10:55)
[2020-10-30] MEDS: ENOXAPARIN 40 MG/0.4 ML SYRINGE SUBCUT SCH (10:55)
[2020-10-30] MEDS: PANTOPRAZOLE 40 MG TABLET PO SCH (10:55)
[2020-10-30] MEDS ORDERED: POTASSIUM CHLORIDE 20 MEQ TABLET PO ONE (15:05)
[2020-10-30] MEDS: DEXAMETHASONE 4 MG/1 ML VIAL IV SCH (15:07)
[2020-10-30] MEDS: MELATONIN 3 MG TABLET PO PRN (20:25)
[2020-10-31] MEDS: hydrALAZINE 20 MG/1 ML VIAL IV PRN (02:50)
[2020-10-31 06:34] LABS: Calcium 9.9 MG/DL (8.5-10.1); Osmolality,Calculated 279.8 MOS/KG (273-304); Potassium 3.6 MMOL/L (3.5-5.1)
[2020-10-31 06:52] LABS: Basophils % 0.1 % (0.0-0.8); Hematocrit 42.6 VOL% (35.7-47.0); Immature Granulocytes % 1.4 %; Immature Granulocytes Absolute 0.11 #; Lymphocytes % 13.1 % (21.3-54.2); Mean Corpuscular HGB Conc 29.8 GM/DL (32-36); Mean Corpuscular Volume 92.8 FL (87-102); Mean Platelet Volume 10.9 FL (9.6-12.0); Monocytes % 7.6 % (1.7-12.7); Neutrophils % 77.8 % (38.7-73.9); Platelet Count 222 T/CUMM (130-400); Red Blood Count 4.59 MC/CUMM (3.8-5.5); Red Cell Distribution Width 15.4 % (9.3-17.3); White Blood Count 7.6 T/CUMM (4-12)
[2020-10-31 07:00] LABS: Hemoglobin 12.7 GM/DL (12.0-16.0)
[2020-10-31 07:02] LABS: Hypochromasia Slight; Microcytosis Slight; Platelet Estimate Adequate
[2020-10-31] MEDS: FUROSEMIDE 40 MG/4 ML VIAL IV SCH ×2 (10:51→16:40)
[2020-10-31] MEDS: DEXAMETHASONE 4 MG/1 ML VIAL IV SCH (10:53)
[2020-10-31] MEDS: FAMOTIDINE 20 MG TABLET PO SCH ×2 (10:54→21:03)
[2020-10-31] MEDS: carvediloL 12.5 MG TABLET PO SCH ×2 (10:54→21:03)
[2020-10-31] MEDS: ZINC GLUCONATE 50 MG TABLET PO SCH (10:55)
[2020-10-31] MEDS: CHOLECALCIFEROL 1,000 UNIT TABLET PO SCH (10:55)
[2020-10-31] MEDS: CETIRIZINE 10 MG TABLET PO SCH (10:55)
[2020-10-31] MEDS: LOSARTAN 50 MG TABLET PO SCH ×2 (10:55→21:03)
[2020-10-31] MEDS: FERROUS SULFATE 325 MG TABLET PO SCH ×2 (10:55→21:03)
[2020-10-31] MEDS: hydrALAZINE 25 MG TABLET PO SCH ×3 (10:55→21:03)
[2020-10-31] MEDS: ASCORBIC ACID 500 MG TABLET PO SCH ×2 (10:55→21:03)
[2020-10-31] MEDS: PANTOPRAZOLE 40 MG TABLET PO SCH (10:55)
[2020-10-31] MEDS: MEMANTINE 10 MG TABLET PO SCH ×2 (10:56→21:03)
[2020-10-31] MEDS: ENOXAPARIN 40 MG/0.4 ML SYRINGE SUBCUT SCH (10:56)
[2020-10-31] MEDS: LEVOTHYROXINE 75 MCG TABLET PO SCH (10:56)
[2020-11-01] MEDS: hydrALAZINE 20 MG/1 ML VIAL IV PRN (05:55)
[2020-11-01] MEDS: FUROSEMIDE 40 MG/4 ML VIAL IV SCH (09:38)
[2020-11-01] MEDS: ENOXAPARIN 40 MG/0.4 ML SYRINGE SUBCUT SCH (09:39)
[2020-11-01] MEDS: CHOLECALCIFEROL 1,000 UNIT TABLET PO SCH (09:39)
[2020-11-01] MEDS: hydrALAZINE 25 MG TABLET PO SCH ×3 (09:40→20:55)
[2020-11-01] MEDS: LOSARTAN 50 MG TABLET PO SCH ×2 (09:40→20:55)
[2020-11-01] MEDS: FERROUS SULFATE 325 MG TABLET PO SCH ×2 (09:40→20:54)
[2020-11-01] MEDS: ZINC GLUCONATE 50 MG TABLET PO SCH (09:40)
[2020-11-01] MEDS: FAMOTIDINE 20 MG TABLET PO SCH ×2 (09:40→20:54)
[2020-11-01] MEDS: PANTOPRAZOLE 40 MG TABLET PO SCH (09:40)
[2020-11-01] MEDS: CETIRIZINE 10 MG TABLET PO SCH (09:40)
[2020-11-01] MEDS: ASCORBIC ACID 500 MG TABLET PO SCH ×2 (09:40→20:55)
[2020-11-01] MEDS: LEVOTHYROXINE 75 MCG TABLET PO SCH (09:40)
[2020-11-01] MEDS: MEMANTINE 10 MG TABLET PO SCH ×2 (09:41→20:55)
[2020-11-01] MEDS: carvediloL 12.5 MG TABLET PO SCH ×2 (09:41→20:55)
[2020-11-01] MEDS: MELATONIN 3 MG TABLET PO PRN (20:54)
[2020-11-02 06:41] LABS: Basophils % 0.4 % (0.0-0.8); Eosinophils # 0.1 10*3/uL (0.0-0.87); Eosinophils % 0.6 % (0.00-10.9); Hematocrit 38.6 VOL% (35.7-47.0); Hemoglobin 12.1 GM/DL (12.0-16.0); Immature Granulocytes % 13.4 %; Immature Granulocytes Absolute 1.04 #; Lymphocytes # 0.7 10*3/uL (1.4-4.0); Lymphocytes % 8.6 % (21.3-54.2); Mean Corpuscular HGB Conc 31.3 GM/DL (32-36); Mean Corpuscular Volume 92.3 FL (87-102); Mean Platelet Volume 11.3 FL (9.6-12.0); Monocytes % 4.8 % (1.7-12.7); Neutrophils % 72.2 % (38.7-73.9); Platelet Count 179 T/CUMM (130-400); Red Blood Count 4.18 MC/CUMM (3.8-5.5); White Blood Count 7.8 T/CUMM (4-12)
[2020-11-02 06:54] LABS: Eosinophils 1 % (0-10); Lymphocytes 10 % (20-55); Platelet Estimate Normal; Segmented Neutrophils 87 % (50-85); Total Cells Counted 100
[2020-11-02 07:27] LABS: Calcium 10.1 MG/DL (8.5-10.1)
[2020-11-02 07:43] LABS: Osmolality,Calculated 293.8 MOS/KG (273-304); Potassium 3.2 MMOL/L (3.5-5.1)
[2020-11-02] MEDS ORDERED: ENOXAPARIN 30 MG/0.3 ML SYRINGE SUBCUT ONE (09:00)
[2020-11-02] MEDS: ASCORBIC ACID 500 MG TABLET PO SCH (10:03)
[2020-11-02] MEDS: CHOLECALCIFEROL 1,000 UNIT TABLET PO SCH (10:03)
[2020-11-02] MEDS: ZINC GLUCONATE 50 MG TABLET PO SCH (10:04)
[2020-11-02] MEDS: carvediloL 12.5 MG TABLET PO SCH (10:04)
[2020-11-02] MEDS: FAMOTIDINE 20 MG TABLET PO SCH (10:04)
[2020-11-02] MEDS: POTASSIUM CHLORIDE 20 MEQ TABLET PO PRN (10:04)
[2020-11-02] MEDS: FERROUS SULFATE 325 MG TABLET PO SCH (10:04)
[2020-11-02] MEDS: CETIRIZINE 10 MG TABLET PO SCH (10:04)
[2020-11-02] MEDS: PANTOPRAZOLE 40 MG TABLET PO SCH (10:05)
[2020-11-02] MEDS: LEVOTHYROXINE 75 MCG TABLET PO SCH (10:05)
[2020-11-02] MEDS: MEMANTINE 10 MG TABLET PO SCH (10:05)
[2020-11-02] MEDS: LOSARTAN 50 MG TABLET PO SCH (10:05)
[2020-11-02] MEDS: hydrALAZINE 25 MG TABLET PO SCH ×2 (10:05→15:18)
[2020-11-02 15:35] VITALS: BP 197/66
== END 2020-11-02 15:50 | DRG 177 ==
LOC: EDUNIT# → EDBD → N.ED 19:33 → N.EDINP 10-22 02:11 → SUATTDRO 10-22 02:11 → N.2E 10-22 03:15
PROVIDERS: ADMIT Internal Medicine; ATTEND Internal Medicine